=== PATIENT | female | born 1955 | race African-American/Black ===

== ENCOUNTER 2018-09-25 01:03 | Inpatient (IN) ==
[2018-09-25] MEDS ORDERED: FUROSEMIDE 40 MG/4 ML VIAL ONE (02:40)
[2018-09-25] MEDS ORDERED: FUROSEMIDE 40 MG/4 ML VIAL IV ONE ×4 (02:41→21:00)
[2018-09-25] MEDS ORDERED: ALBUTEROL/IPRATROPIUM 3 ML NEB RESP TX PRN (02:42)
[2018-09-25] MEDS: ALBUTEROL/IPRATROPIUM 3 ML NEB RESP TX SCH ×4 (03:48→19:53)
[2018-09-25] MEDS ORDERED: ONDANSETRON 4 MG/2 ML VIAL IV PRN (04:15)
[2018-09-25] MEDS ORDERED: DOCUSATE SODIUM 100 MG CAPSULE PO PRN (04:15)
[2018-09-25] MEDS ORDERED: ACETAMINOPHEN 325 MG TABLET PO PRN (04:15)
[2018-09-25] MEDS ORDERED: MAGNESIUM SULF RIDER 4 GM in PREMIX 1 EACH IV PRN (04:26)
[2018-09-25] MEDS ORDERED: MAGNESIUM SULF RIDER 2 GM in PREMIX 1 EACH IV PRN (04:26)
[2018-09-25] MEDS ORDERED: DEXTROSE 50% 25 GM/50 ML SYRINGE IV PRN ×2 (04:55→10:32)
[2018-09-25] MEDS ORDERED: GLUCAGON 1 MG VIAL IM PRN ×2 (04:55→10:32)
[2018-09-25] MEDS ORDERED: NITROGLYCERIN SL 0.4 MG TABLET SL PRN (04:58)
[2018-09-25] MEDS ORDERED: levETIRAcetam 500 MG TABLET PO ONE (05:00)
[2018-09-25 05:45] LABS: Basophils # 0.1 10*3/uL (0.0-0.2); Basophils % 0.4 % (0.0-0.8); Eosinophils # 0.1 10*3/uL (0.0-0.87); Eosinophils % 0.6 % (0.00-10.9); Hematocrit 37.2 VOL% (35.7-47.0); Hemoglobin 11.6 GM/DL (12.0-16.0); Immature Granulocytes % 0.5 %; Immature Granulocytes Absolute 0.06 #; Lymphocytes # 1.4 10*3/uL (1.4-4.0); Lymphocytes % 11.3 % (21.3-54.2); Mean Corpuscular HGB Conc 31.2 GM/DL (32-36); Mean Corpuscular Hemoglobin 29 PG (27-34); Mean Corpuscular Volume 91.4 FL (87-102); Mean Platelet Volume 11.6 FL (9.6-12.0); Monocytes # 0.5 10*3/uL (0.11-0.8); Monocytes % 4.3 % (1.7-12.7); Neutrophils # 10.2 10*3/uL (1.4-7.4); Neutrophils % 82.9 % (38.7-73.9); Platelet Count 277 T/CUMM (130-400); Red Blood Count 4.07 MC/CUMM (3.8-5.5); Red Cell Distribution Width 13.8 % (9.3-17.3); White Blood Count 12.3 T/CUMM (4-12)
[2018-09-25 05:48] LABS: PT Patient Result 10.7 SECS
[2018-09-25 05:49] LABS: Alanine Aminotransferase 22 U/L (13-56); Albumin 3.3 G/DL (3.4-5.0); Alkaline Phosphatase 109 U/L (45-117); Aspartate Amino Transferase 74 U/L (0-37); Bilirubin,Total < 0.39 MG/DL (0.2-1.0); Blood Urea Nitrogen 23 MG/DL (7-18); CKMB % 9.8 %; Calcium 8.8 MG/DL (8.5-10.1); Glucose 173 MG/DL (74-106); Potassium 3.6 MMOL/L (3.5-5.1); Sodium 136 MMOL/L (136-145)
[2018-09-25 05:56] LABS: Risk Ratio 3.9; Thyroid Stimulating Hormone 1.07 uIU/ml (0.358-3.74); VLDL CHOLESTEROL 19.4 MG/DL
[2018-09-25] MEDS: cefTRIAXone 1,000 MG in SYRINGE 1 EACH IV SCH (06:39)
[2018-09-25] MEDS: POTASSIUM CHLORIDE 20 MEQ TABLET PO PRN ×2 (07:42→09:49)
[2018-09-25] MEDS: FUROSEMIDE 40 MG/4 ML VIAL IV SCH ×2 (08:55→17:25)
[2018-09-25] MEDS: guaiFENesin/DM ER 600-30 MG TABLET PO SCH ×3 (08:59→21:00)
[2018-09-25] MEDS: INSULIN LISPRO 100 UNIT/ML SUBCUT SCH ×4 (08:59→21:39)
[2018-09-25] MEDS: ALBUTEROL 2.5 MG/3 ML NEB RESP TX PRN ×2 (09:45→12:41)
[2018-09-25] MEDS: AZITHROMYCIN INJ 500 MG in SODIUM CHLORIDE 0.9% 250 ML IV SCH (10:05)
[2018-09-25] MEDS: ENOXAPARIN 120 MG/0.8 ML SYRINGE SUBCUT SCH ×2 (10:54→23:45)
[2018-09-25] MEDS: ASPIRIN EC 81 MG TABLET PO SCH (10:54)
[2018-09-25] MEDS: METOPROLOL TARTRATE 25 MG TABLET PO SCH ×2 (10:54→21:00)
[2018-09-25] MEDS: methylPREDNISolone SOD SUC 40 MG/1 ML VIAL IV SCH ×2 (17:26→23:45)
[2018-09-25] MEDS: ROSUVASTATIN 20 MG TABLET PO SCH (21:00)
[2018-09-25] MEDS: MORPHINE 4 MG/1 ML VIAL IV PRN (22:08)
[2018-09-26] MEDS: ALBUTEROL/IPRATROPIUM 3 ML NEB RESP TX SCH ×4 (00:15→20:55)
[2018-09-26] MEDS: cefTRIAXone 1,000 MG in SYRINGE 1 EACH IV SCH (04:59)
[2018-09-26] MEDS: AZITHROMYCIN INJ 500 MG in SODIUM CHLORIDE 0.9% 250 ML IV SCH (04:59)
[2018-09-26 05:14] LABS: Basophils % 0.1 % (0.0-0.8); Hematocrit 36.7 VOL% (35.7-47.0); Hemoglobin 11.6 GM/DL (12.0-16.0); Immature Granulocytes % 0.5 %; Immature Granulocytes Absolute 0.09 #; Lymphocytes # 0.9 10*3/uL (1.4-4.0); Lymphocytes % 5.4 % (21.3-54.2); Mean Corpuscular HGB Conc 31.6 GM/DL (32-36); Mean Corpuscular Hemoglobin 28 PG (27-34); Mean Corpuscular Volume 89.7 FL (87-102); Mean Platelet Volume 12.2 FL (9.6-12.0); Monocytes # 0.3 10*3/uL (0.11-0.8); Monocytes % 1.6 % (1.7-12.7); Neutrophils # 15.4 10*3/uL (1.4-7.4); Neutrophils % 92.4 % (38.7-73.9); Platelet Count 264 T/CUMM (130-400); Red Blood Count 4.09 MC/CUMM (3.8-5.5); Red Cell Distribution Width 13.9 % (9.3-17.3); White Blood Count 16.6 T/CUMM (4-12)
[2018-09-26 05:39] LABS: Calcium 9.1 MG/DL (8.5-10.1); Osmolality,Calculated 287.7 MOS/KG (273-304); Potassium 4.3 MMOL/L (3.5-5.1)
[2018-09-26 07:39] LABS: Anisocytosis Slight; Band Neutrophils 8 % (0-10); Lymphocytes 6 % (20-55); Macrocytosis Slight; Platelet Estimate Normal; Segmented Neutrophils 86 % (50-85); Total Cells Counted 100
[2018-09-26] MEDS: ASPIRIN EC 81 MG TABLET PO SCH (08:36)
[2018-09-26] MEDS: methylPREDNISolone SOD SUC 40 MG/1 ML VIAL IV SCH ×3 (08:36→23:50)
[2018-09-26] MEDS: FUROSEMIDE 40 MG/4 ML VIAL IV SCH ×2 (08:36→15:26)
[2018-09-26] MEDS: guaiFENesin/DM ER 600-30 MG TABLET PO SCH ×2 (08:36→21:27)
[2018-09-26] MEDS: METOPROLOL TARTRATE 25 MG TABLET PO SCH (08:36)
[2018-09-26] MEDS: INSULIN LISPRO 100 UNIT/ML SUBCUT SCH ×4 (08:36→21:28)
[2018-09-26] MEDS: ALBUTEROL 2.5 MG/3 ML NEB RESP TX PRN (10:00)
[2018-09-26] MEDS: ENOXAPARIN 120 MG/0.8 ML SYRINGE SUBCUT SCH ×2 (11:30→23:50)
[2018-09-26 11:47] LABS: Apearance,Urine CLEAR (Clear); Bacteria,Urine Occasional /HPF (Few); Bilirubin,Urine Negative (Negative); Blood, Urine Moderate mg/dL (Negative); Glucose,Urine (UA) Negative (Negative); Hyaline Casts,Urine 3 /LPF (0-3); Ketones,Urine Negative (Negative); Mucus,Urine Occasional /LPF (Occasional); Nitrite,Urine Negative (Negative); Protein,Urine Negative; RBC,Urine 28 /HPF (0-4); Squamous Epithelial Cell,Urine Occasional /HPF (0-10); Urine Color Straw (Yellow); Urine Specific Gravity 1.008 (1.001-1.035); Urine Urobilinogen < 2.0 EU/DL (0.2-1.0); WBC,Urine 4 /HPF (0-6)
[2018-09-26] MEDS: GABAPENTIN 300 MG CAPSULE PO SCH ×2 (15:26→21:27)
[2018-09-26] MEDS: ROSUVASTATIN 20 MG TABLET PO SCH (21:26)
[2018-09-26] MEDS: METOPROLOL TARTRATE 50 MG TABLET PO SCH (21:27)
[2018-09-26] MEDS: INSULIN GLARGINE 100 UNIT/ML SUBCUT SCH (21:27)
[2018-09-27] MEDS: ALBUTEROL/IPRATROPIUM 3 ML NEB RESP TX SCH ×4 (00:28→19:40)
[2018-09-27] MEDS: MORPHINE 4 MG/1 ML VIAL IV PRN ×2 (00:58→22:50)
[2018-09-27 04:35] LABS: Basophils % 0.1 % (0.0-0.8); Hematocrit 32.8 VOL% (35.7-47.0); Hemoglobin 10.3 GM/DL (12.0-16.0); Immature Granulocytes % 0.7 %; Lymphocytes # 0.9 10*3/uL (1.4-4.0); Lymphocytes % 6.1 % (21.3-54.2); Mean Corpuscular HGB Conc 31.4 GM/DL (32-36); Mean Corpuscular Hemoglobin 28 PG (27-34); Mean Corpuscular Volume 89.9 FL (87-102); Mean Platelet Volume 11.9 FL (9.6-12.0); Monocytes # 0.3 10*3/uL (0.11-0.8); Monocytes % 1.8 % (1.7-12.7); Neutrophils # 13.7 10*3/uL (1.4-7.4); Neutrophils % 91.3 % (38.7-73.9); Platelet Count 250 T/CUMM (130-400); Red Blood Count 3.65 MC/CUMM (3.8-5.5)
[2018-09-27 04:59] LABS: Calcium 8.6 MG/DL (8.5-10.1); Osmolality,Calculated 287.8 MOS/KG (273-304); Potassium 4.3 MMOL/L (3.5-5.1)
[2018-09-27 05:03] LABS: Hypochromasia 1+; Lymphocytes 5 % (20-55); Platelet Estimate Adequate; Segmented Neutrophils 94 % (50-85); Total Cells Counted 100
[2018-09-27] MEDS: AZITHROMYCIN INJ 500 MG in SODIUM CHLORIDE 0.9% 250 ML IV SCH (05:24)
[2018-09-27] MEDS: cefTRIAXone 1,000 MG in SYRINGE 1 EACH IV SCH (05:24)
[2018-09-27] MEDS ORDERED: CLOPIDOGREL 300 MG TABLET PO ONE (09:50)
[2018-09-27] MEDS: FUROSEMIDE 40 MG/4 ML VIAL IV SCH ×2 (09:52→16:00)
[2018-09-27] MEDS: ASPIRIN EC 81 MG TABLET PO SCH (09:52)
[2018-09-27] MEDS: METOPROLOL TARTRATE 50 MG TABLET PO SCH ×2 (09:52→22:37)
[2018-09-27] MEDS: GABAPENTIN 300 MG CAPSULE PO SCH ×3 (09:52→22:36)
[2018-09-27] MEDS: guaiFENesin/DM ER 600-30 MG TABLET PO SCH ×2 (09:52→22:36)
[2018-09-27] MEDS: INSULIN LISPRO 100 UNIT/ML SUBCUT SCH ×4 (09:53→22:37)
[2018-09-27] MEDS: methylPREDNISolone SOD SUC 40 MG/1 ML VIAL IV SCH ×2 (09:53→15:59)
[2018-09-27] MEDS: AZITHROMYCIN 250 MG TABLET PO SCH (09:57)
[2018-09-27] MEDS: LISINOPRIL 2.5 MG TABLET PO SCH (10:25)
[2018-09-27] MEDS ORDERED: MAGNESIUM SULF RIDER 4 GM in PREMIX 1 EACH IV PRN (11:10)
[2018-09-27] MEDS ORDERED: MAGNESIUM SULF RIDER 2 GM in PREMIX 1 EACH IV PRN (11:10)
[2018-09-27] MEDS: glipiZIDE 5 MG TABLET PO SCH ×2 (11:25→22:37)
[2018-09-27] MEDS: ROSUVASTATIN 20 MG TABLET PO SCH (22:36)
[2018-09-27] MEDS: INSULIN GLARGINE 100 UNIT/ML SUBCUT SCH (22:38)
[2018-09-28] MEDS: methylPREDNISolone SOD SUC 40 MG/1 ML VIAL IV SCH ×3 (00:48→16:32)
[2018-09-28] MEDS: ALBUTEROL/IPRATROPIUM 3 ML NEB RESP TX SCH ×4 (01:35→19:40)
[2018-09-28] MEDS: MORPHINE 4 MG/1 ML VIAL IV PRN ×2 (04:43→22:30)
[2018-09-28] MEDS: cefTRIAXone 1,000 MG in SYRINGE 1 EACH IV SCH (04:45)
[2018-09-28 05:02] LABS: Basophils % 0.1 % (0.0-0.8); Hemoglobin 10.3 GM/DL (12.0-16.0); Immature Granulocytes % 0.7 %; Immature Granulocytes Absolute 0.08 #; Lymphocytes % 7.9 % (21.3-54.2); Mean Corpuscular HGB Conc 31.2 GM/DL (32-36); Mean Corpuscular Hemoglobin 28 PG (27-34); Mean Corpuscular Volume 90.4 FL (87-102); Mean Platelet Volume 11.6 FL (9.6-12.0); Monocytes # 0.5 10*3/uL (0.11-0.8); Monocytes % 4.3 % (1.7-12.7); Neutrophils # 10.6 10*3/uL (1.4-7.4); Platelet Count 270 T/CUMM (130-400); Red Blood Count 3.65 MC/CUMM (3.8-5.5); White Blood Count 12.2 T/CUMM (4-12)
[2018-09-28 05:30] LABS: Potassium 3.9 MMOL/L (3.5-5.1)
[2018-09-28 05:34] LABS: Troponin I 9.02 NG/ML (0.00-0.045)
[2018-09-28] MEDS: LISINOPRIL 2.5 MG TABLET PO SCH (09:07)
[2018-09-28] MEDS: guaiFENesin/DM ER 600-30 MG TABLET PO SCH ×2 (09:07→22:06)
[2018-09-28] MEDS: METOPROLOL TARTRATE 50 MG TABLET PO SCH ×2 (09:07→22:05)
[2018-09-28] MEDS: CLOPIDOGREL 75 MG TABLET PO SCH (09:08)
[2018-09-28] MEDS: INSULIN LISPRO 100 UNIT/ML SUBCUT SCH ×4 (09:08→22:33)
[2018-09-28] MEDS: glipiZIDE 5 MG TABLET PO SCH ×2 (09:08→22:05)
[2018-09-28] MEDS: GABAPENTIN 300 MG CAPSULE PO SCH ×3 (09:08→22:05)
[2018-09-28] MEDS: FUROSEMIDE 40 MG/4 ML VIAL IV SCH (09:08)
[2018-09-28] MEDS: AZITHROMYCIN 250 MG TABLET PO SCH (09:08)
[2018-09-28] MEDS: ASPIRIN EC 81 MG TABLET PO SCH (09:08)
[2018-09-28] MEDS: FUROSEMIDE 40 MG TABLET PO SCH (16:32)
[2018-09-28] MEDS: ROSUVASTATIN 20 MG TABLET PO SCH (22:05)
[2018-09-28] MEDS: INSULIN GLARGINE 100 UNIT/ML SUBCUT SCH (22:33)
[2018-09-29] MEDS: ALBUTEROL/IPRATROPIUM 3 ML NEB RESP TX SCH ×4 (00:30→20:50)
[2018-09-29] MEDS: methylPREDNISolone SOD SUC 40 MG/1 ML VIAL IV SCH ×3 (02:15→22:31)
[2018-09-29] MEDS: cefTRIAXone 1,000 MG in SYRINGE 1 EACH IV SCH (05:20)
[2018-09-29 05:39] LABS: Hematocrit 33.1 VOL% (35.7-47.0); Hemoglobin 10.5 GM/DL (12.0-16.0); Immature Granulocytes % 0.8 %; Immature Granulocytes Absolute 0.08 #; Lymphocytes # 0.9 10*3/uL (1.4-4.0); Mean Corpuscular HGB Conc 31.7 GM/DL (32-36); Mean Corpuscular Hemoglobin 29 PG (27-34); Mean Corpuscular Volume 90.4 FL (87-102); Mean Platelet Volume 11.7 FL (9.6-12.0); Monocytes # 0.4 10*3/uL (0.11-0.8); Monocytes % 4.5 % (1.7-12.7); Neutrophils # 8.4 10*3/uL (1.4-7.4); Neutrophils % 85.7 % (38.7-73.9); Platelet Count 275 T/CUMM (130-400); Red Blood Count 3.66 MC/CUMM (3.8-5.5); Red Cell Distribution Width 13.9 % (9.3-17.3); White Blood Count 9.8 T/CUMM (4-12)
[2018-09-29 05:57] LABS: Calcium 8.5 MG/DL (8.5-10.1); Osmolality,Calculated 290.8 MOS/KG (273-304); Potassium 3.8 MMOL/L (3.5-5.1)
[2018-09-29] MEDS: INSULIN LISPRO 100 UNIT/ML SUBCUT SCH ×4 (09:39→22:10)
[2018-09-29] MEDS: CLOPIDOGREL 75 MG TABLET PO SCH (09:40)
[2018-09-29] MEDS: METOPROLOL TARTRATE 50 MG TABLET PO SCH ×2 (09:40→22:10)
[2018-09-29] MEDS: FUROSEMIDE 40 MG TABLET PO SCH ×2 (09:40→16:44)
[2018-09-29] MEDS: LISINOPRIL 2.5 MG TABLET PO SCH (09:40)
[2018-09-29] MEDS: guaiFENesin/DM ER 600-30 MG TABLET PO SCH ×2 (09:40→22:10)
[2018-09-29] MEDS: glipiZIDE 5 MG TABLET PO SCH ×2 (09:40→22:31)
[2018-09-29] MEDS: GABAPENTIN 300 MG CAPSULE PO SCH ×3 (09:40→22:10)
[2018-09-29] MEDS: AZITHROMYCIN 250 MG TABLET PO SCH (09:41)
[2018-09-29] MEDS: ASPIRIN EC 81 MG TABLET PO SCH (09:41)
[2018-09-29] MEDS: POTASSIUM CHLORIDE 20 MEQ TABLET PO PRN (12:41)
[2018-09-29] MEDS: ROSUVASTATIN 20 MG TABLET PO SCH (22:10)
[2018-09-29] MEDS: INSULIN GLARGINE 100 UNIT/ML SUBCUT SCH (22:11)
[2018-09-30] MEDS: ALBUTEROL/IPRATROPIUM 3 ML NEB RESP TX SCH ×4 (00:53→20:09)
[2018-09-30] MEDS: MORPHINE 4 MG/1 ML VIAL IV PRN (01:02)
[2018-09-30] MEDS: cefTRIAXone 1,000 MG in SYRINGE 1 EACH IV SCH (04:30)
[2018-09-30 05:47] LABS: Calcium 8.6 MG/DL (8.5-10.1); Osmolality,Calculated 293.8 MOS/KG (273-304)
[2018-09-30 06:49] LABS: Hematocrit 33.5 VOL% (35.7-47.0); Hemoglobin 10.4 GM/DL (12.0-16.0); Immature Granulocytes % 0.4 %; Immature Granulocytes Absolute 0.04 #; Lymphocytes # 0.9 10*3/uL (1.4-4.0); Lymphocytes % 9.3 % (21.3-54.2); Mean Corpuscular Hemoglobin 28 PG (27-34); Mean Corpuscular Volume 90.1 FL (87-102); Mean Platelet Volume 11.7 FL (9.6-12.0); Monocytes # 0.5 10*3/uL (0.11-0.8); Monocytes % 4.7 % (1.7-12.7); Neutrophils # 8.7 10*3/uL (1.4-7.4); Neutrophils % 85.6 % (38.7-73.9); Platelet Count 284 T/CUMM (130-400); Red Blood Count 3.72 MC/CUMM (3.8-5.5); Red Cell Distribution Width 13.7 % (9.3-17.3); White Blood Count 10.2 T/CUMM (4-12)
[2018-09-30] MEDS: INSULIN LISPRO 100 UNIT/ML SUBCUT SCH ×4 (09:00→21:34)
[2018-09-30] MEDS: guaiFENesin/DM ER 600-30 MG TABLET PO SCH ×2 (09:02→21:34)
[2018-09-30] MEDS: GABAPENTIN 300 MG CAPSULE PO SCH ×3 (09:02→21:34)
[2018-09-30] MEDS: ASPIRIN EC 81 MG TABLET PO SCH (09:02)
[2018-09-30] MEDS: CLOPIDOGREL 75 MG TABLET PO SCH (09:02)
[2018-09-30] MEDS: LISINOPRIL 2.5 MG TABLET PO SCH (09:02)
[2018-09-30] MEDS: METOPROLOL TARTRATE 50 MG TABLET PO SCH ×2 (09:03→21:34)
[2018-09-30] MEDS: glipiZIDE 5 MG TABLET PO SCH ×2 (09:03→21:34)
[2018-09-30] MEDS: FUROSEMIDE 40 MG TABLET PO SCH ×2 (09:04→16:43)
[2018-09-30] MEDS: methylPREDNISolone SOD SUC 40 MG/1 ML VIAL IV SCH (09:08)
[2018-09-30] MEDS: ROSUVASTATIN 20 MG TABLET PO SCH (21:34)
[2018-09-30] MEDS: INSULIN GLARGINE 100 UNIT/ML SUBCUT SCH (21:35)
[2018-10-01] MEDS: MORPHINE 4 MG/1 ML VIAL IV PRN (00:03)
[2018-10-01] MEDS: ALBUTEROL/IPRATROPIUM 3 ML NEB RESP TX SCH ×2 (00:16→07:45)
[2018-10-01] MEDS: cefTRIAXone 1,000 MG in SYRINGE 1 EACH IV SCH (04:09)
[2018-10-01] MEDS: CLOPIDOGREL 75 MG TABLET PO SCH (08:31)
[2018-10-01] MEDS: ASPIRIN EC 81 MG TABLET PO SCH (08:31)
[2018-10-01] MEDS: INSULIN LISPRO 100 UNIT/ML SUBCUT SCH ×3 (08:31→16:40)
[2018-10-01] MEDS: guaiFENesin/DM ER 600-30 MG TABLET PO SCH (08:32)
[2018-10-01] MEDS: LISINOPRIL 2.5 MG TABLET PO SCH (08:32)
[2018-10-01] MEDS: glipiZIDE 5 MG TABLET PO SCH (08:32)
[2018-10-01] MEDS: GABAPENTIN 300 MG CAPSULE PO SCH ×2 (08:32→15:41)
[2018-10-01] MEDS: FUROSEMIDE 40 MG TABLET PO SCH ×2 (08:32→15:41)
[2018-10-01] MEDS: METOPROLOL TARTRATE 50 MG TABLET PO SCH (08:32)
[2018-10-01 16:34] VITALS: BP 131/85
== END 2018-10-01 17:20 | disposition home health service (06) | DRG 280 ==
LOC: N.TELEN 02:10 → SUATTDRO 02:10 → N.ICU 05:14 → N.TELEN 09-27 14:10
PROVIDERS: ADMIT Internal Medicine; ATTEND Internal Medicine Cardiovascular Disease

== ENCOUNTER 2018-11-16 09:28 | Inpatient (IN) ==
[~2018-11-16 09:28] MED LIST: DEXTROSE 50% 25 GM/50 ML SYRINGE IV PRN; DULAGLUTIDE SUBCUT SCH; GLUCAGON 1 MG VIAL IM PRN; NITROGLYCERIN SL 0.4 MG TABLET SL PRN
[2018-11-16 12:43] LABS: Basophils % 0.6 % (0.0-0.8); Eosinophils # 0.3 10*3/uL (0.0-0.87); Eosinophils % 4.5 % (0.00-10.9); Hematocrit 31.8 VOL% (35.7-47.0); Hemoglobin 9.4 GM/DL (12.0-16.0); Immature Granulocytes % 0.1 %; Immature Granulocytes Absolute 0.01 #; Lymphocytes # 1.5 10*3/uL (1.4-4.0); Lymphocytes % 21.1 % (21.3-54.2); Mean Corpuscular HGB Conc 29.6 GM/DL (32-36); Mean Corpuscular Hemoglobin 29 PG (27-34); Mean Corpuscular Volume 96.7 FL (87-102); Mean Platelet Volume 10.8 FL (9.6-12.0); Monocytes # 0.4 10*3/uL (0.11-0.8); Neutrophils # 4.7 10*3/uL (1.4-7.4); Neutrophils % 67.7 % (38.7-73.9); Platelet Count 229 T/CUMM (130-400); Red Blood Count 3.29 MC/CUMM (3.8-5.5); Red Cell Distribution Width 15.2 % (9.3-17.3)
[2018-11-16 13:07] LABS: Albumin 3.2 G/DL (3.4-5.0); Bilirubin,Total 1.1 MG/DL (0.2-1.0); Calcium 9.1 MG/DL (8.5-10.1); Osmolality,Calculated 286.1 MOS/KG (273-304); Potassium 3.9 MMOL/L (3.5-5.1); Total Protein 7.7 G/DL (6.4-8.3)
[2018-11-16] MEDS: levETIRAcetam 500 MG TABLET PO SCH ×3 (13:59→21:05)
[2018-11-16] MEDS: POTASSIUM CHLORIDE 20 MEQ TABLET PO SCH ×2 (13:59→14:37)
[2018-11-16] MEDS: METOPROLOL TARTRATE 50 MG TABLET PO SCH ×3 (13:59→21:06)
[2018-11-16] MEDS: MAGNESIUM OXIDE 400 MG TABLET PO SCH ×3 (14:00→21:06)
[2018-11-16] MEDS: GABAPENTIN 300 MG CAPSULE PO SCH ×4 (14:00→21:06)
[2018-11-16] MEDS: SODIUM CHLORIDE 0.9% 1,000 ML IV SCH ×2 (14:01→14:02)
[2018-11-16] MEDS: ATORVASTATIN 40 MG TABLET PO SCH ×2 (14:02→21:06)
[2018-11-16] MEDS: PANTOPRAZOLE 40 MG TABLET PO SCH ×2 (14:02→14:38)
[2018-11-16] MEDS: FUROSEMIDE 80 MG TABLET PO SCH ×3 (14:02→16:01)
[2018-11-16] MEDS: CHLORHEXIDINE 0.12% ORAL RINSE 60 ML BOTTLE SWISH/SPIT SCH ×3 (14:02→23:10)
[2018-11-16] MEDS: CHLORHEXIDINE 4% SOLN 118 ML BOTTLE TOP SCH ×4 (14:36→23:10)
[2018-11-16] MEDS ORDERED: NITROPRUSSIDE 50 MG/2 ML VIAL ONE (22:42)
[2018-11-16] MEDS ORDERED: PHENYLEPHRINE DRIP 40 MG/250 ML PREMIX IV ONE (22:42)
[2018-11-16] MEDS ORDERED: POTASSIUM CHLORIDE RIDER 100 ML IV ONE (22:43)
[2018-11-16] MEDS ORDERED: CALCIUM CHLORIDE 1,000 MG/10 ML SYRINGE IV ONE (22:43)
[2018-11-17] MEDS: CHLORHEXIDINE 4% SOLN 118 ML BOTTLE TOP SCH ×3 (05:00→10:55)
[2018-11-17] MEDS ORDERED: VANCOMYCIN 1,000 MG VIAL ONE (05:01)
[2018-11-17] MEDS ORDERED: PAPAVERINE 60 MG/2 ML VIAL ONE (05:01)
[2018-11-17] MEDS ORDERED: PHENYLEPHRINE DRIP 20 MG/250 ML PREMIX IV ONE (05:53)
[2018-11-17] MEDS ORDERED: HEPARIN/NACL 0.9% 2 UNITS/ML 500 ML IV ONE (05:53)
[2018-11-17] MEDS ORDERED: AMINOCAPROIC ACID 5,000 MG/20 ML VIAL ONE (05:54)
[2018-11-17] MEDS ORDERED: MIDAZOLAM 10 MG/2 ML VIAL ONE (05:54)
[2018-11-17] MEDS ORDERED: NITROGLYCERIN DRIP 50 MG/250 ML BOTTLE IV ONE (05:54)
[2018-11-17] MEDS ORDERED: SUFentanil 250 MCG/5 ML AMP ONE (05:54)
[2018-11-17] MEDS ORDERED: VECURONIUM 10 MG VIAL IV ONE (05:54)
[2018-11-17] MEDS ORDERED: CEFUROXIME INJ 1,500 MG in SYRINGE 1 EACH IV ONE (06:00)
[2018-11-17] MEDS ORDERED: CLINDAMYCIN 600 MG/4 ML VIAL ONE (08:00)
[2018-11-17 08:07] LABS: Hemoglobin Heart Surgery 9.2 G/DL (12.0-16.0); PH Patient Temp Venous 7.363; PO2 Patient Temp Venous 41.8 MM HG; Potassium Heart/CVR 3.5 MMOL/L (3.5-5.1); VBG Base Excess 3.9 MEQ/L (0-4); VBG Oxygen Saturation 66.1 %; VBG PH 7.363; VBG PO2 41.8 MMHG (17-40)
[2018-11-17 08:21] LABS: Apearance,Urine CLEAR (Clear); Bilirubin,Urine Negative (Negative); Blood, Urine Negative (Negative); Glucose,Urine (UA) Negative (Negative); Ketones,Urine Negative (Negative); Mucus,Urine Occasional /LPF (Occasional); Nitrite,Urine Negative (Negative); Protein,Urine Negative; Squamous Epithelial Cell,Urine Occasional /HPF (0-10); Urine Color Yellow (Yellow); Urine Specific Gravity 1.012 (1.001-1.035); Urine Urobilinogen < 2.0 EU/DL (0.2-1.0); WBC,Urine 2 /HPF (0-6)
[2018-11-17 09:38] LABS: Hematocrit Heart Surgery 24.6 PERCENT (37-47); Hemoglobin Heart Surgery 7.9 G/DL (12.0-16.0); PCO2 Patient Temp Venous 33.9 MM HG; PH Patient Temp Venous 7.487; Potassium Heart/CVR 4.1 MMOL/L (3.5-5.1); VBG Base Excess 2.5 MEQ/L (0-4); VBG HCO3 26.5 MEQ/L (24-28); VBG Oxygen Saturation 83.9 %; VBG PCO2 39.2 MMHG (41-51); VBG PH 7.442
[2018-11-17 10:09] LABS: PCO2 Patient Temp Venous 30.5 MM HG; PH Patient Temp Venous 7.547; PO2 Patient Temp Venous 39.9 MM HG; Potassium Heart/CVR 3.9 MMOL/L (3.5-5.1); VBG Base Excess 3.3 MEQ/L (0-4); VBG HCO3 26.3 MEQ/L (24-28); VBG Oxygen Saturation 82.3 %; VBG PCO2 33.3 MMHG (41-51); VBG PH 7.516; VBG PO2 45.9 MMHG (17-40)
[2018-11-17] MEDS ORDERED: SODIUM BICARBONATE 50 MEQ/50 ML SYRINGE IV ONE ×2 (10:31→11:15)
[2018-11-17] MEDS ORDERED: EPINEPHrine 1 MG/10 ML SYRINGE ONE (10:32)
[2018-11-17] MEDS ORDERED: LIDOCAINE 100 MG/5 ML SYRINGE ONE (10:32)
[2018-11-17] MEDS ORDERED: ALBUMIN 5% 12.5 GM/250 ML VIAL IV ONE (10:32)
[2018-11-17] MEDS ORDERED: ATROPINE 1 MG/10 ML SYRINGE ONE (10:32)
[2018-11-17] MEDS ORDERED: DOBUTamine 0 MG/0 ML PREMIX IV ONE (10:38)
[2018-11-17] MEDS: FUROSEMIDE 80 MG TABLET PO SCH (10:53)
[2018-11-17] MEDS: levETIRAcetam 500 MG TABLET PO SCH (10:54)
[2018-11-17] MEDS: POTASSIUM CHLORIDE 20 MEQ TABLET PO SCH (10:54)
[2018-11-17] MEDS: METOPROLOL TARTRATE 50 MG TABLET PO SCH (10:54)
[2018-11-17] MEDS: SODIUM CHLORIDE 0.9% 1,000 ML IV SCH (10:54)
[2018-11-17] MEDS: MAGNESIUM OXIDE 400 MG TABLET PO SCH (10:54)
[2018-11-17] MEDS: GABAPENTIN 300 MG CAPSULE PO SCH (10:54)
[2018-11-17] MEDS: CHLORHEXIDINE 0.12% ORAL RINSE 60 ML BOTTLE SWISH/SPIT SCH ×2 (10:55→21:38)
[2018-11-17] MEDS: PANTOPRAZOLE 40 MG TABLET PO SCH (10:55)
[2018-11-17 11:02] LABS: ABG Base Excess 1.8 MMOL/L (-2.5-2.5); ABG HCO3 25.2 MMOL/L (20-26); ABG PCO2 34.3 MM HG (35-48); ABG PH 7.484 (7.35-7.45); ABG PO2 316.7 MM HG (80-95); ABG TCO2 26.3 MMOL/L (23-27); Glucose Heart Surgery 183 MG/DL (74-106); Hemoglobin Heart Surgery 8.5 G/DL (12.0-16.0); PCO2 Patient Temp Arterial 34.3 MMHG; PH Patient Temp Arterial 7.484; PO2 Patient Temp Arterial 316.7 MM HG; Patient Temperature 37 CELCIUS; Potassium Heart/CVR 3.8 MMOL/L (3.5-5.1); Sodium Heart/CVR 137 MMOL/L (135-145)
[2018-11-17] MEDS ORDERED: MANNITOL 100 GM/500 ML BAG IV ONE (11:14)
[2018-11-17] MEDS ORDERED: DEXTROSE 5% KCL 20 MEQ 20 MEQ/1,000 ML BAG IV ONE (11:14)
[2018-11-17] MEDS ORDERED: HEPARIN 10,000 UNIT/10 ML VIAL ONE (11:15)
[2018-11-17] MEDS ORDERED: methylPREDNISolone SOD SUC 1,000 MG/8 ML VIAL ONE (11:15)
[2018-11-17] MEDS ORDERED: FUROSEMIDE 20 MG/2 ML VIAL ONE (11:15)
[2018-11-17] MEDS ORDERED: ALBUMIN 25% 25 GM/100 ML VIAL IV ONE (11:15)
[2018-11-17] MEDS ORDERED: PROTAMINE SULFATE 250 MG/25 ML VIAL IV ONE (11:15)
[2018-11-17] MEDS ORDERED: MAGNESIUM SULFATE 10 GM/20 ML VIAL IV ONE (11:15)
[2018-11-17] MEDS ORDERED: PROTAMINE SULFATE 50 MG/5 ML VIAL IV ONE ×3 (11:16→12:51)
[2018-11-17] MEDS ORDERED: DOBUTamine 500 MG/250 ML PREMIX IV ONE (11:26)
[2018-11-17] MEDS: DOBUTamine 500 MG/250 ML PREMIX IV SCH (11:48)
[2018-11-17] MEDS ORDERED: CALCIUM CHLORIDE 1,000 MG/10 ML VIAL IV ONE (12:07)
[2018-11-17] MEDS ORDERED: SODIUM CHLORIDE 0.9% 50 ML IV ONE (12:08)
[2018-11-17] MEDS ORDERED: LACTATED RINGERS 1,000 ML IV ONE (12:08)
[2018-11-17] MEDS ORDERED: ETOMIDATE 40 MG/20 ML VIAL IV ONE (12:08)
[2018-11-17] MEDS ORDERED: SODIUM CHLORIDE 0.9% 250 ML IV ONE (12:08)
[2018-11-17] MEDS ORDERED: SEVOFLURANE 1 UNIT/15 MINUTE INH ONE (12:08)
[2018-11-17] MEDS ORDERED: MINERAL OIL/PETROLATUM OPH OINT 3.5 GM TUBE ONE (12:08)
[2018-11-17] MEDS ORDERED: SODIUM CHLORIDE 0.9% 2,000 ML IV ONE (12:08)
[2018-11-17] MEDS ORDERED: MIDAZOLAM 10 MG/2 ML VIAL IV PRN (12:22)
[2018-11-17] MEDS ORDERED: MAGNESIUM SULF RIDER 4 GM in PREMIX 1 EACH IV PRN (12:22)
[2018-11-17] MEDS ORDERED: INSULIN REGULAR 100 UNIT/ML IV ONE (12:22)
[2018-11-17] MEDS ORDERED: MORPHINE 10 MG/1 ML VIAL IV PRN (12:22)
[2018-11-17] MEDS ORDERED: CALCIUM CHLORIDE 1,000 MG/10 ML SYRINGE IV PRN (12:22)
[2018-11-17] MEDS ORDERED: NITROPRUSSIDE 100 MG in DEXTROSE 5% 250 ML IV PRN (12:22)
[2018-11-17] MEDS ORDERED: SODIUM CHLORIDE 0.45% 1,000 ML IV SCH ×2 (12:22)
[2018-11-17] MEDS ORDERED: ONDANSETRON 4 MG/2 ML VIAL IV PRN (12:22)
[2018-11-17] MEDS ORDERED: INSULIN REGULAR 100 UNIT/ML IV PRN (12:22)
[2018-11-17] MEDS ORDERED: LACTATED RINGERS 250 ML IV PRN (12:22)
[2018-11-17] MEDS ORDERED: ACETAMINOPHEN 650 MG SUPP RECTAL PRN (12:22)
[2018-11-17] MEDS ORDERED: PHENYLEPHRINE DRIP 40 MG/250 ML PREMIX IV PRN (12:22)
[2018-11-17] MEDS ORDERED: MAGNESIUM SULF RIDER 2 GM in PREMIX 1 EACH IV PRN (12:22)
[2018-11-17] MEDS ORDERED: ALBUMIN 5% 12.5 GM in PREMIX 1 EACH IV PRN (12:22)
[2018-11-17] MEDS ORDERED: DEXTROSE 50% 25 GM/50 ML SYRINGE IV PRN ×2 (12:22)
[2018-11-17] MEDS ORDERED: MIDAZOLAM 2 MG/2 ML VIAL IV PRN (12:22)
[2018-11-17] MEDS ORDERED: VECURONIUM 10 MG VIAL IV PRN ×2 (12:22)
[2018-11-17 12:29] LABS: Basophils % 0.3 % (0.0-0.8); Eosinophils # 0.2 10*3/uL (0.0-0.87); Eosinophils % 1.3 % (0.00-10.9); Hematocrit 25.3 VOL% (35.7-47.0); Immature Granulocytes % 0.9 %; Immature Granulocytes Absolute 0.11 #; Lymphocytes # 1.3 10*3/uL (1.4-4.0); Lymphocytes % 9.9 % (21.3-54.2); Mean Corpuscular HGB Conc 31.6 GM/DL (32-36); Mean Corpuscular Hemoglobin 30 PG (27-34); Mean Corpuscular Volume 94.4 FL (87-102); Mean Platelet Volume 10.5 FL (9.6-12.0); Monocytes # 0.6 10*3/uL (0.11-0.8); Monocytes % 4.4 % (1.7-12.7); Neutrophils # 10.5 10*3/uL (1.4-7.4); Neutrophils % 83.2 % (38.7-73.9); Platelet Count 186 T/CUMM (130-400); Red Blood Count 2.68 MC/CUMM (3.8-5.5); Red Cell Distribution Width 15.1 % (9.3-17.3); White Blood Count 12.6 T/CUMM (4-12)
[2018-11-17 12:32] LABS: ABG Base Excess 1.2 MMOL/L (-2.5-2.5); ABG HCO3 25.5 MMOL/L (20-26); ABG Oxygen Saturation 94.5 % (95-100); ABG PCO2 39.3 MM HG (35-48); ABG PH 7.422 (7.35-7.45); ABG PO2 71.3 MM HG (80-95); ABG TCO2 23.8 MMOL/L (23-27); Glucose Heart Surgery 165 MG/DL (74-106); Hematocrit Heart Surgery 25.8 PERCENT (37-47); Hemoglobin Heart Surgery 8.3 G/DL (12.0-16.0); Potassium Heart/CVR 3.5 MMOL/L (3.5-5.1)
[2018-11-17] MEDS: POTASSIUM CHLORIDE RIDER 20 MEQ in PREMIX 1 EACH IV PRN ×5 (12:34→21:33)
[2018-11-17 12:35] LABS: INR 1.2; Partial Thromboplastin Time 26.5 SECS (0-40)
[2018-11-17 12:45] LABS: Albumin 2.7 G/DL (3.4-5.0); Bilirubin,Total 1.2 MG/DL (0.2-1.0); Calcium 9.3 MG/DL (8.5-10.1); Potassium 3.6 MMOL/L (3.5-5.1); Total Protein 5.4 G/DL (6.4-8.3)
[2018-11-17] MEDS ORDERED: FUROSEMIDE 40 MG/4 ML VIAL ONE (12:48)
[2018-11-17] MEDS ORDERED: FUROSEMIDE 40 MG/4 ML VIAL IV ONE (12:51)
[2018-11-17 12:59] LABS: Troponin I 3.22 NG/ML (0.00-0.045)
[2018-11-17] MEDS: POTASSIUM CHLORIDE RIDER 10 MEQ in PREMIX 1 EACH IV PRN ×2 (13:05→15:21)
[2018-11-17] MEDS: INSULIN REGULAR DRIP 100 ML IV SCH (13:12)
[2018-11-17 14:05] LABS: ABG Base Excess 1.4 MMOL/L (-2.5-2.5); ABG HCO3 25.7 MMOL/L (20-26); ABG PCO2 41.3 MM HG (35-48); ABG TCO2 23.8 MMOL/L (23-27); Glucose Heart Surgery 137 MG/DL (74-106); Hematocrit Heart Surgery 31.2 PERCENT (37-47); Hemoglobin Heart Surgery 10.1 G/DL (12.0-16.0); Potassium Heart/CVR 3.7 MMOL/L (3.5-5.1)
[2018-11-17 14:19] LABS: Hemoglobin 9.1 GM/DL (12.0-16.0)
[2018-11-17 16:03] LABS: ABG Base Excess 2.3 MMOL/L (-2.5-2.5); ABG HCO3 26.5 MMOL/L (20-26); ABG Oxygen Saturation 93.6 % (95-100); ABG PCO2 39.6 MM HG (35-48); ABG PH 7.443 (7.35-7.45); ABG PO2 72.1 MM HG (80-95); ABG TCO2 27.7 MMOL/L (23-27); Glucose Heart Surgery 123 MG/DL (74-106); Hemoglobin Heart Surgery 10.9 G/DL (12.0-16.0); Potassium Heart/CVR 4.2 MMOL/L (3.5-5.1)
[2018-11-17] MEDS ORDERED: SODIUM CHLORIDE 0.9% 1,000 ML IV ONE (18:03)
[2018-11-17 18:10] LABS: ABG Base Excess 1.6 MMOL/L (-2.5-2.5); ABG HCO3 25.7 MMOL/L (20-26); ABG PCO2 40.5 MM HG (35-48); ABG PH 7.418 (7.35-7.45); ABG PO2 70.1 MM HG (80-95); ABG TCO2 23.5 MMOL/L (23-27); Glucose Heart Surgery 134 MG/DL (74-106); Hematocrit Heart Surgery 33.8 PERCENT (37-47); Potassium Heart/CVR 4.1 MMOL/L (3.5-5.1)
[2018-11-17] MEDS: MORPHINE 4 MG/1 ML VIAL IV PRN ×2 (20:00→22:28)
[2018-11-17 20:47] LABS: ABG Base Excess 1.6 MMOL/L (-2.5-2.5); ABG HCO3 25.8 MMOL/L (20-26); ABG Oxygen Saturation 95.7 % (95-100); ABG PCO2 40.8 MM HG (35-48); ABG PH 7.416 (7.35-7.45); ABG PO2 77.4 MM HG (80-95); ABG TCO2 23.9 MMOL/L (23-27); Glucose Heart Surgery 148 MG/DL (74-106); Hematocrit Heart Surgery 31.1 PERCENT (37-47); Hemoglobin Heart Surgery 10.1 G/DL (12.0-16.0); Potassium Heart/CVR 4.3 MMOL/L (3.5-5.1)
[2018-11-17 21:23] LABS: CKMB % 4.3 %
[2018-11-17 21:25] LABS: Troponin I 3.4 NG/ML (0.00-0.045)
[2018-11-17 23:57] LABS: ABG Base Excess 1.9 MMOL/L (-2.5-2.5); ABG HCO3 26.1 MMOL/L (20-26); ABG Oxygen Saturation 98.1 % (95-100); ABG PCO2 41.7 MM HG (35-48); ABG PH 7.414 (7.35-7.45); ABG PO2 99.9 MM HG (80-95); ABG TCO2 24.2 MMOL/L (23-27); Glucose Heart Surgery 133 MG/DL (74-106); Potassium Heart/CVR 4.2 MMOL/L (3.5-5.1)
[2018-11-18 00:34] LABS: ABG Base Excess 2.6 MMOL/L (-2.5-2.5); ABG HCO3 26.7 MMOL/L (20-26); ABG Oxygen Saturation 96.8 % (95-100); ABG PCO2 40.8 MM HG (35-48); ABG PO2 84.1 MM HG (80-95); ABG TCO2 24.6 MMOL/L (23-27); Glucose Heart Surgery 130 MG/DL (74-106); Hematocrit Heart Surgery 30.9 PERCENT (37-47); Potassium Heart/CVR 4.2 MMOL/L (3.5-5.1)
[2018-11-18] MEDS: MORPHINE 4 MG/1 ML VIAL IV PRN ×2 (01:38→09:28)
[2018-11-18 04:06] LABS: ABG Base Excess 3.5 MMOL/L (-2.5-2.5); ABG HCO3 27.9 MMOL/L (20-26); ABG Oxygen Saturation 95.3 % (95-100); ABG PCO2 41.8 MM HG (35-48); ABG PH 7.443 (7.35-7.45); ABG PO2 82.5 MM HG (80-95); ABG TCO2 29.2 MMOL/L (23-27); Glucose Heart Surgery 104 MG/DL (74-106); Hemoglobin Heart Surgery 10.3 G/DL (12.0-16.0)
[2018-11-18 04:13] LABS: Basophils % 0.2 % (0.0-0.8); Hematocrit 30.2 VOL% (35.7-47.0); Hemoglobin 9.5 GM/DL (12.0-16.0); Immature Granulocytes % 0.5 %; Immature Granulocytes Absolute 0.05 #; Lymphocytes # 0.8 10*3/uL (1.4-4.0); Lymphocytes % 7.1 % (21.3-54.2); Mean Corpuscular HGB Conc 31.5 GM/DL (32-36); Mean Corpuscular Hemoglobin 30 PG (27-34); Mean Corpuscular Volume 94.1 FL (87-102); Mean Platelet Volume 10.8 FL (9.6-12.0); Monocytes # 0.5 10*3/uL (0.11-0.8); Monocytes % 4.9 % (1.7-12.7); Neutrophils # 9.6 10*3/uL (1.4-7.4); Neutrophils % 87.3 % (38.7-73.9); Platelet Count 164 T/CUMM (130-400); Red Blood Count 3.21 MC/CUMM (3.8-5.5); Red Cell Distribution Width 15.1 % (9.3-17.3)
[2018-11-18 04:27] LABS: CKMB % 4.3 %
[2018-11-18 04:31] LABS: Troponin I 3.09 NG/ML (0.00-0.045)
[2018-11-18 04:44] LABS: Albumin 3.1 G/DL (3.4-5.0); Bilirubin,Direct 0.22 MG/DL (0.0-0.20); Bilirubin,Total 0.7 MG/DL (0.2-1.0); Calcium 9.1 MG/DL (8.5-10.1); Osmolality,Calculated 287.8 MOS/KG (273-304); Potassium 4.1 MMOL/L (3.5-5.1); Total Protein 6.1 G/DL (6.4-8.3)
[2018-11-18] MEDS: POTASSIUM CHLORIDE RIDER 20 MEQ in PREMIX 1 EACH IV PRN (05:01)
[2018-11-18] MEDS ORDERED: DEXTROSE 50% 25 GM/50 ML SYRINGE IV PRN (06:12)
[2018-11-18] MEDS ORDERED: GLUCAGON 1 MG VIAL IM PRN (06:12)
[2018-11-18] MEDS: INSULIN REGULAR 100 UNIT/ML SUBCUT SCH ×5 (06:47→21:03)
[2018-11-18 06:52] LABS: ABG Base Excess 2.9 MMOL/L (-2.5-2.5); ABG HCO3 27.7 MMOL/L (20-26); ABG Oxygen Saturation 93.2 % (95-100); ABG PCO2 43.4 MM HG (35-48); ABG PH 7.423 (7.35-7.45); ABG PO2 72.1 MM HG (80-95); Glucose Heart Surgery 117 MG/DL (74-106); Hemoglobin Heart Surgery 10.2 G/DL (12.0-16.0); Potassium Heart/CVR 4.4 MMOL/L (3.5-5.1)
[2018-11-18] MEDS: DOBUTamine 500 MG/250 ML PREMIX IV SCH ×2 (08:21→11:14)
[2018-11-18] MEDS: GABAPENTIN 300 MG CAPSULE PO SCH ×3 (09:33→21:03)
[2018-11-18] MEDS: METOPROLOL TARTRATE 50 MG TABLET PO SCH ×2 (09:33→21:03)
[2018-11-18] MEDS: MAGNESIUM OXIDE 400 MG TABLET PO SCH ×2 (09:33→21:03)
[2018-11-18] MEDS: PANTOPRAZOLE 40 MG TABLET PO SCH (09:33)
[2018-11-18] MEDS: FUROSEMIDE 40 MG/4 ML VIAL IV SCH ×2 (09:36→15:30)
[2018-11-18] MEDS: CHLORHEXIDINE 0.12% ORAL RINSE 60 ML BOTTLE SWISH/SPIT SCH ×2 (09:50→21:03)
[2018-11-18] MEDS: INSULIN REGULAR DRIP 100 ML IV SCH (11:24)
[2018-11-18] MEDS: SODIUM CHLORIDE 0.45% 1,000 ML IV SCH (11:26)
[2018-11-18 13:48] LABS: CKMB % 1.7 %
[2018-11-18 13:49] LABS: Troponin I 2.52 NG/ML (0.00-0.045)
[2018-11-18 15:41] LABS: ABG Base Excess 1.9 MMOL/L (-2.5-2.5); ABG HCO3 26.1 MMOL/L (20-26); ABG Oxygen Saturation 96.7 % (95-100); ABG PCO2 38.1 MM HG (35-48); ABG PH 7.441 (7.35-7.45); ABG PO2 82.4 MM HG (80-95); ABG TCO2 23.6 MMOL/L (23-27); Glucose Heart Surgery 192 MG/DL (74-106); Hematocrit Heart Surgery 30.9 PERCENT (37-47)
[2018-11-18] MEDS ORDERED: KETOROLAC 30 MG/1 ML VIAL IV ONE (16:08)
[2018-11-18] MEDS ORDERED: HALOPERIDOL 5 MG/ML AMP IV ONE (16:09)
[2018-11-18] MEDS ORDERED: HALOPERIDOL 5 MG/ML AMP IV PRN (18:27)
[2018-11-18] MEDS ORDERED: traMADol 50 MG TABLET PO PRN (18:28)
[2018-11-19] MEDS: SODIUM CHLORIDE 0.45% 1,000 ML IV SCH (01:11)
[2018-11-19] MEDS: INSULIN REGULAR 100 UNIT/ML SUBCUT SCH ×5 (01:31→20:58)
[2018-11-19 03:55] LABS: Basophils % 0.1 % (0.0-0.8); Hematocrit 29.2 VOL% (35.7-47.0); Hemoglobin 8.9 GM/DL (12.0-16.0); Immature Granulocytes % 0.6 %; Immature Granulocytes Absolute 0.08 #; Lymphocytes # 1.1 10*3/uL (1.4-4.0); Mean Corpuscular HGB Conc 30.5 GM/DL (32-36); Mean Corpuscular Hemoglobin 30 PG (27-34); Mean Platelet Volume 11.4 FL (9.6-12.0); Monocytes # 1.1 10*3/uL (0.11-0.8); Neutrophils % 83.3 % (38.7-73.9); Platelet Count 162 T/CUMM (130-400); Red Blood Count 3.01 MC/CUMM (3.8-5.5); Red Cell Distribution Width 15.3 % (9.3-17.3); White Blood Count 13.2 T/CUMM (4-12)
[2018-11-19 04:13] LABS: Albumin 2.9 G/DL (3.4-5.0); Bilirubin,Direct 0.16 MG/DL (0.0-0.20); Bilirubin,Total 0.4 MG/DL (0.2-1.0); Calcium 8.3 MG/DL (8.5-10.1); Total Protein 6.4 G/DL (6.4-8.3)
[2018-11-19] MEDS: FUROSEMIDE 40 MG/4 ML VIAL IV SCH (08:26)
[2018-11-19] MEDS: METOPROLOL TARTRATE 50 MG TABLET PO SCH ×2 (08:28→20:43)
[2018-11-19] MEDS: PANTOPRAZOLE 40 MG TABLET PO SCH ×2 (08:28→10:39)
[2018-11-19] MEDS: CHLORHEXIDINE 0.12% ORAL RINSE 60 ML BOTTLE SWISH/SPIT SCH ×3 (08:28→22:36)
[2018-11-19] MEDS: MAGNESIUM OXIDE 400 MG TABLET PO SCH (08:28)
[2018-11-19] MEDS: GABAPENTIN 300 MG CAPSULE PO SCH ×3 (08:28→20:43)
[2018-11-19] MEDS ORDERED: ONDANSETRON 4 MG/2 ML VIAL IV PRN (09:47)
[2018-11-19] MEDS ORDERED: ACETAMINOPHEN 325 MG TABLET PO PRN (09:47)
[2018-11-19] MEDS ORDERED: DEXTROSE 50% 25 GM/50 ML VIAL IV PRN (09:47)
[2018-11-19] MEDS ORDERED: ZALEPLON 5 MG CAPSULE PO PRN (09:47)
[2018-11-19] MEDS ORDERED: DEXTROSE 50% 25 GM/50 ML SYRINGE IV PRN (09:47)
[2018-11-19] MEDS ORDERED: ALUMINUM/MAGNES/SIMETH MAX STR 30 ML UDCUP PO PRN (09:47)
[2018-11-19] MEDS ORDERED: MAGNESIUM SULF RIDER 2 GM in PREMIX 1 EACH IV PRN (09:47)
[2018-11-19] MEDS ORDERED: MAGNESIUM HYDROXIDE SUSP 30 ML UDCUP PO PRN (09:47)
[2018-11-19] MEDS ORDERED: MAGNESIUM SULF RIDER 4 GM in PREMIX 1 EACH IV PRN (09:47)
[2018-11-19] MEDS ORDERED: GLUCAGON 1 MG VIAL IM PRN ×2 (09:47)
[2018-11-19] MEDS ORDERED: SODIUM CHLOR 0.45% KCL 20 MEQ 20 MEQ/1,000 ML BAG IV SCH (09:47)
[2018-11-19] MEDS: DOCUSATE SODIUM 100 MG CAPSULE PO SCH (10:37)
[2018-11-19] MEDS: FERROUS SULFATE 325 MG TABLET PO SCH (10:37)
[2018-11-19] MEDS: ASPIRIN EC 325 MG TABLET PO SCH (10:37)
[2018-11-19] MEDS: diphenhydrAMINE CAP 25 MG CAPSULE PO PRN ×2 (11:59→20:42)
[2018-11-19] MEDS: levETIRAcetam 500 MG TABLET PO SCH (20:43)
[2018-11-20 05:02] LABS: Basophils % 0.1 % (0.0-0.8); Eosinophils # 0.1 10*3/uL (0.0-0.87); Eosinophils % 0.9 % (0.00-10.9); Hematocrit 29.7 VOL% (35.7-47.0); Immature Granulocytes % 0.7 %; Immature Granulocytes Absolute 0.08 #; Lymphocytes # 1.8 10*3/uL (1.4-4.0); Mean Corpuscular HGB Conc 30.3 GM/DL (32-36); Mean Corpuscular Hemoglobin 29 PG (27-34); Mean Corpuscular Volume 96.7 FL (87-102); Mean Platelet Volume 11.8 FL (9.6-12.0); Monocytes % 8.1 % (1.7-12.7); Neutrophils % 75.2 % (38.7-73.9); Platelet Count 167 T/CUMM (130-400); Red Blood Count 3.07 MC/CUMM (3.8-5.5); Red Cell Distribution Width 15.3 % (9.3-17.3)
[2018-11-20 05:28] LABS: Alanine Aminotransferase 11 U/L (13-56); Alkaline Phosphatase 71 U/L (45-117); Aspartate Amino Transferase 22 U/L (0-37); Bilirubin,Indirect 0.8 MG/DL (0.0-1.0); Blood Urea Nitrogen 29 MG/DL (7-18); Calcium 8.8 MG/DL (8.5-10.1); Glucose 149 MG/DL (74-106); Osmolality,Calculated 291.1 MOS/KG (273-304); Potassium 3.9 MMOL/L (3.5-5.1); Sodium 142 MMOL/L (136-145); Total Protein 6.5 G/DL (6.4-8.3)
[2018-11-20] MEDS ORDERED: FUROSEMIDE 40 MG/4 ML VIAL IV ONE (06:00)
[2018-11-20] MEDS: POTASSIUM CHLORIDE 20 MEQ TABLET PO PRN ×2 (06:43→08:31)
[2018-11-20] MEDS: INSULIN REGULAR 100 UNIT/ML SUBCUT SCH ×3 (08:05→16:34)
[2018-11-20] MEDS: levETIRAcetam 500 MG TABLET PO SCH (08:31)
[2018-11-20] MEDS: ASPIRIN EC 325 MG TABLET PO SCH (08:31)
[2018-11-20] MEDS: PANTOPRAZOLE 40 MG TABLET PO SCH (08:31)
[2018-11-20] MEDS: METOPROLOL TARTRATE 50 MG TABLET PO SCH (08:31)
[2018-11-20] MEDS: FERROUS SULFATE 325 MG TABLET PO SCH (08:31)
[2018-11-20] MEDS: diphenhydrAMINE CAP 25 MG CAPSULE PO PRN (08:32)
[2018-11-20] MEDS: DOCUSATE SODIUM 100 MG CAPSULE PO SCH (08:32)
[2018-11-20] MEDS: GABAPENTIN 300 MG CAPSULE PO SCH ×2 (08:32→15:40)
[2018-11-20] MEDS: CHLORHEXIDINE 0.12% ORAL RINSE 60 ML BOTTLE SWISH/SPIT SCH (10:07)
[2018-11-20] MEDS: ZINC OXIDE PASTE 113 GM TUBE TOP SCH (13:17)
[2018-11-21] MEDS: GABAPENTIN 300 MG CAPSULE PO SCH ×4 (00:11→23:44)
[2018-11-21] MEDS: ZINC OXIDE PASTE 113 GM TUBE TOP SCH ×3 (00:11→23:45)
[2018-11-21] MEDS: METOPROLOL TARTRATE 50 MG TABLET PO SCH ×3 (00:11→23:43)
[2018-11-21] MEDS: levETIRAcetam 500 MG TABLET PO SCH ×3 (00:11→23:43)
[2018-11-21] MEDS: CHLORHEXIDINE 0.12% ORAL RINSE 60 ML BOTTLE SWISH/SPIT SCH ×3 (00:17→23:44)
[2018-11-21] MEDS: INSULIN REGULAR 100 UNIT/ML SUBCUT SCH ×5 (00:44→23:44)
[2018-11-21 05:02] LABS: Basophils % 0.1 % (0.0-0.8); Eosinophils # 0.5 10*3/uL (0.0-0.87); Eosinophils % 4.2 % (0.00-10.9); Hematocrit 28.6 VOL% (35.7-47.0); Hemoglobin 8.8 GM/DL (12.0-16.0); Immature Granulocytes % 0.4 %; Immature Granulocytes Absolute 0.05 #; Lymphocytes # 1.8 10*3/uL (1.4-4.0); Mean Corpuscular HGB Conc 30.8 GM/DL (32-36); Mean Corpuscular Hemoglobin 30 PG (27-34); Mean Corpuscular Volume 96.9 FL (87-102); Mean Platelet Volume 11.4 FL (9.6-12.0); Monocytes # 0.9 10*3/uL (0.11-0.8); Monocytes % 8.1 % (1.7-12.7); Neutrophils # 8.4 10*3/uL (1.4-7.4); Neutrophils % 72.2 % (38.7-73.9); Platelet Count 175 T/CUMM (130-400); Red Blood Count 2.95 MC/CUMM (3.8-5.5); Red Cell Distribution Width 14.7 % (9.3-17.3); White Blood Count 11.6 T/CUMM (4-12)
[2018-11-21 05:39] LABS: Alanine Aminotransferase 11 U/L (13-56); Albumin 2.6 G/DL (3.4-5.0); Alkaline Phosphatase 70 U/L (45-117); Aspartate Amino Transferase 14 U/L (0-37); Blood Urea Nitrogen 28 MG/DL (7-18); Calcium 8.4 MG/DL (8.5-10.1); Glucose 101 MG/DL (74-106); Osmolality,Calculated 288.1 MOS/KG (273-304); Sodium 142 MMOL/L (136-145); Total Protein 6.2 G/DL (6.4-8.3)
[2018-11-21 05:40] LABS: Troponin I 0.615 NG/ML (0.00-0.045)
[2018-11-21] MEDS: POTASSIUM CHLORIDE 20 MEQ TABLET PO PRN (08:53)
[2018-11-21] MEDS: ASPIRIN EC 325 MG TABLET PO SCH (08:53)
[2018-11-21] MEDS: PANTOPRAZOLE 40 MG TABLET PO SCH (08:53)
[2018-11-21] MEDS: FERROUS SULFATE 325 MG TABLET PO SCH (08:54)
[2018-11-21] MEDS: DOCUSATE SODIUM 100 MG CAPSULE PO SCH (08:54)
[2018-11-21] MEDS: FUROSEMIDE 40 MG/4 ML VIAL IV SCH (08:58)
[2018-11-22] MEDS: INSULIN REGULAR 100 UNIT/ML SUBCUT SCH ×4 (07:44→21:17)
[2018-11-22] MEDS: PANTOPRAZOLE 40 MG TABLET PO SCH (09:30)
[2018-11-22] MEDS: levETIRAcetam 500 MG TABLET PO SCH ×2 (09:30→21:18)
[2018-11-22] MEDS: ASPIRIN EC 325 MG TABLET PO SCH (09:30)
[2018-11-22] MEDS: FERROUS SULFATE 325 MG TABLET PO SCH (09:30)
[2018-11-22] MEDS: METOPROLOL TARTRATE 50 MG TABLET PO SCH ×2 (09:30→21:18)
[2018-11-22] MEDS: GABAPENTIN 300 MG CAPSULE PO SCH ×3 (09:30→21:18)
[2018-11-22] MEDS: ZINC OXIDE PASTE 113 GM TUBE TOP SCH ×2 (09:31→21:28)
[2018-11-22] MEDS: DOCUSATE SODIUM 100 MG CAPSULE PO SCH (09:31)
[2018-11-22] MEDS: CHLORHEXIDINE 0.12% ORAL RINSE 60 ML BOTTLE SWISH/SPIT SCH ×2 (09:31→21:28)
[2018-11-22] MEDS: FUROSEMIDE 40 MG/4 ML VIAL IV SCH (09:31)
[2018-11-23 05:33] LABS: Basophils % 0.2 % (0.0-0.8); Eosinophils # 0.7 10*3/uL (0.0-0.87); Eosinophils % 6.8 % (0.00-10.9); Hematocrit 26.6 VOL% (35.7-47.0); Hemoglobin 8.1 GM/DL (12.0-16.0); Immature Granulocytes % 0.6 %; Immature Granulocytes Absolute 0.06 #; Lymphocytes # 1.5 10*3/uL (1.4-4.0); Lymphocytes % 13.5 % (21.3-54.2); Mean Corpuscular HGB Conc 30.5 GM/DL (32-36); Mean Corpuscular Hemoglobin 30 PG (27-34); Mean Corpuscular Volume 97.1 FL (87-102); Mean Platelet Volume 11.8 FL (9.6-12.0); Monocytes % 8.8 % (1.7-12.7); Neutrophils # 7.6 10*3/uL (1.4-7.4); Neutrophils % 70.1 % (38.7-73.9); Platelet Count 189 T/CUMM (130-400); Red Blood Count 2.74 MC/CUMM (3.8-5.5); Red Cell Distribution Width 14.6 % (9.3-17.3); White Blood Count 10.9 T/CUMM (4-12)
[2018-11-23 05:48] LABS: Alanine Aminotransferase 13 U/L (13-56); Albumin 2.5 G/DL (3.4-5.0); Alkaline Phosphatase 70 U/L (45-117); Aspartate Amino Transferase 11 U/L (0-37); Bilirubin,Indirect 0.6 MG/DL (0.0-1.0); Blood Urea Nitrogen 23 MG/DL (7-18); Calcium 8.5 MG/DL (8.5-10.1); Glucose 96 MG/DL (74-106); Osmolality,Calculated 286.1 MOS/KG (273-304); Potassium 3.5 MMOL/L (3.5-5.1); Sodium 142 MMOL/L (136-145); Total Protein 6.3 G/DL (6.4-8.3); Troponin I 0.205 NG/ML (0.00-0.045)
[2018-11-23] MEDS: INSULIN REGULAR 100 UNIT/ML SUBCUT SCH (08:15)
[2018-11-23 08:37] VITALS: BP 131/66
[2018-11-23] MEDS: FUROSEMIDE 40 MG/4 ML VIAL IV SCH (08:46)
[2018-11-23] MEDS: FERROUS SULFATE 325 MG TABLET PO SCH (08:47)
[2018-11-23] MEDS: GABAPENTIN 300 MG CAPSULE PO SCH (08:47)
[2018-11-23] MEDS: ZINC OXIDE PASTE 113 GM TUBE TOP SCH (08:47)
[2018-11-23] MEDS: levETIRAcetam 500 MG TABLET PO SCH (08:47)
[2018-11-23] MEDS: CHLORHEXIDINE 0.12% ORAL RINSE 60 ML BOTTLE SWISH/SPIT SCH (08:47)
[2018-11-23] MEDS: PANTOPRAZOLE 40 MG TABLET PO SCH (08:47)
[2018-11-23] MEDS: ASPIRIN EC 325 MG TABLET PO SCH (08:47)
[2018-11-23] MEDS: METOPROLOL TARTRATE 50 MG TABLET PO SCH (08:47)
[2018-11-23] MEDS: DOCUSATE SODIUM 100 MG CAPSULE PO SCH (08:47)
== END 2018-11-23 11:55 | disposition home health service (06) | DRG 235 ==
LOC: N.TELES 11:53 → N.CVR 11-17 10:37 → N.ICU 11-18 14:40 → N.TELES 11-19 09:33

== ENCOUNTER 2019-07-19 23:58 | Inpatient (IN) ==
[2019-07-20] MEDS ORDERED: ASPIRIN 325 MG TABLET PO STA (00:24)
[2019-07-20] MEDS ORDERED: ONDANSETRON 4 MG/2 ML VIAL IV STA (00:24)
[2019-07-20] MEDS ORDERED: NITROGLYCERIN 2% OINT 1 INCH/GM PACK TOP STA (00:24)
[2019-07-20 00:42] LABS: Basophils # 0.1 10*3/uL (0.0-0.2); Basophils % 0.5 % (0.0-0.8); Eosinophils # 0.1 10*3/uL (0.0-0.87); Eosinophils % 0.6 % (0.00-10.9); Hematocrit 29.5 VOL% (35.7-47.0); Immature Granulocytes % 0.5 %; Immature Granulocytes Absolute 0.05 #; Lymphocytes # 1.8 10*3/uL (1.4-4.0); Lymphocytes % 16.3 % (21.3-54.2); Mean Corpuscular HGB Conc 30.5 GM/DL (32-36); Mean Corpuscular Volume 83.6 FL (87-102); Mean Platelet Volume 11.5 FL (9.6-12.0); Monocytes % 8.5 % (1.7-12.7); NRBC # 0.02 10*3/uL; Neutrophils % 73.6 % (38.7-73.9); Platelet Count 225 T/CUMM (130-400); Red Blood Count 3.53 MC/CUMM (3.8-5.5); Red Cell Distribution Width 19.9 % (9.3-17.3); White Blood Count 11.1 T/CUMM (4-12)
[2019-07-20 00:47] LABS: INR 1.3; PT Patient Result 13.7 SECS (9.6-12.2)
[2019-07-20 00:52] LABS: Albumin 3.1 G/DL (3.4-5.0); Calcium 8.6 MG/DL (8.5-10.1); Osmolality,Calculated 287.3 MOS/KG (273-304); Total Protein 7.2 G/DL (6.4-8.3)
[2019-07-20] MEDS ORDERED: ONDANSETRON 4 MG/2 ML VIAL IV PRN (03:32)
[2019-07-20] MEDS ORDERED: MORPHINE 4 MG/1 ML VIAL IV PRN (03:32)
[2019-07-20] MEDS ORDERED: DEXTROSE 50% 25 GM/50 ML VIAL IV PRN (03:32)
[2019-07-20] MEDS ORDERED: MAGNESIUM SULF RIDER 4 GM in PREMIX 1 EACH IV PRN (03:32)
[2019-07-20] MEDS ORDERED: GLUCAGON 1 MG VIAL IM PRN (03:32)
[2019-07-20] MEDS ORDERED: MAGNESIUM SULF RIDER 2 GM in PREMIX 1 EACH IV PRN (03:32)
[2019-07-20] MEDS ORDERED: POTASSIUM CHLORIDE 20 MEQ TABLET PO PRN (03:32)
[2019-07-20] MEDS: SODIUM CHLORIDE 0.9% 1,000 ML IV SCH (03:49)
[2019-07-20] MEDS ORDERED: NITROGLYCERIN SL 0.4 MG TABLET SL PRN (04:49)
[2019-07-20] MEDS ORDERED: ENOXAPARIN 150 MG/ML SYRINGE SUBCUT SCH (05:00)
[2019-07-20 05:43] LABS: Basophils # 0.1 10*3/uL (0.0-0.2); Basophils % 0.5 % (0.0-0.8); Eosinophils # 0.2 10*3/uL (0.0-0.87); Eosinophils % 2.1 % (0.00-10.9); Hematocrit 30.7 VOL% (35.7-47.0); Hemoglobin 9.1 GM/DL (12.0-16.0); Immature Granulocytes % 0.4 %; Immature Granulocytes Absolute 0.05 #; Lymphocytes # 2.2 10*3/uL (1.4-4.0); Lymphocytes % 18.8 % (21.3-54.2); Mean Corpuscular HGB Conc 29.6 GM/DL (32-36); Mean Corpuscular Volume 84.6 FL (87-102); Mean Platelet Volume 11.2 FL (9.6-12.0); Monocytes % 9.5 % (1.7-12.7); NRBC # 0.02 10*3/uL; Neutrophils % 68.7 % (38.7-73.9); Platelet Count 242 T/CUMM (130-400); Red Blood Count 3.63 MC/CUMM (3.8-5.5); Red Cell Distribution Width 19.8 % (9.3-17.3); White Blood Count 11.6 T/CUMM (4-12)
[2019-07-20 06:01] LABS: CKMB % 2.9 %
[2019-07-20 06:05] LABS: Troponin I 33.3 NG/ML (0.00-0.045)
[2019-07-20 06:08] LABS: Albumin 3.2 G/DL (3.4-5.0); Bilirubin,Total 1.5 MG/DL (0.2-1.0); Calcium 9.1 MG/DL (8.5-10.1); Osmolality,Calculated 288.3 MOS/KG (273-304); Risk Ratio 2.45; Thyroid Stimulating Hormone 1.53 uIU/ml (0.358-3.74); Total Protein 7.6 G/DL (6.4-8.3); VLDL CHOLESTEROL 14.8 MG/DL
[2019-07-20] MEDS: INSULIN REGULAR 100 UNIT/ML SUBCUT SCH ×3 (06:46→17:57)
[2019-07-20] MEDS ORDERED: glipiZIDE 5 MG TABLET PO SCH (07:30)
[2019-07-20] MEDS: METOPROLOL TARTRATE 50 MG TABLET PO SCH ×2 (08:26→22:00)
[2019-07-20] MEDS: PANTOPRAZOLE 40 MG TABLET PO SCH (08:26)
[2019-07-20] MEDS: POTASSIUM CHLORIDE 20 MEQ TABLET PO SCH (08:27)
[2019-07-20] MEDS: levETIRAcetam 500 MG TABLET PO SCH ×2 (08:27→22:01)
[2019-07-20] MEDS: ASPIRIN EC 81 MG TABLET PO SCH (08:27)
[2019-07-20] MEDS: GABAPENTIN 100 MG CAPSULE PO SCH ×2 (08:39→22:00)
[2019-07-20] MEDS ORDERED: GABAPENTIN 300 MG CAPSULE PO SCH (09:00)
[2019-07-20] MEDS ORDERED: MAGNESIUM OXIDE 400 MG TABLET PO SCH (09:00)
[2019-07-20 09:42] LABS: % Iron Saturation 5.4 % (18-50); Ferritin 37.7 ng/ml (8-252)
[2019-07-20 10:31] LABS: Hepatitis B Core IgM Quant < 0.05 Index; Hepatitis B Surface Ag Quant 0.26 Index; Hepatitis B Surface Ag Result Negative (Negative); Hepatitis C Virus Ab Quant 0.27 Index; Hepatitis C Virus Ab Result Negative (Negative); Prolactin 23.1 NG/ML
[2019-07-20 11:25] LABS: Amorphous Crystals,Urine Few /HPF (Few); Apearance,Urine CLOUDY (Clear); Bacteria,Urine Moderate /HPF (Few); Bilirubin,Urine Negative (Negative); Blood, Urine Large mg/dL (Negative); Glucose,Urine (UA) Negative (Negative); Hyaline Casts,Urine 44 /LPF (0-3); Ketones,Urine Negative (Negative); Mucus,Urine Occasional /LPF (Occasional); Nitrite,Urine Negative (Negative); Protein,Urine 30 MG/DL; Squamous Epithelial Cell,Urine Occasional /HPF (0-10); Urine Color Yellow (Yellow); Urine Specific Gravity 1.014 (1.001-1.035); Urine Urobilinogen < 2.0 EU/DL (0.2-1.0)
[2019-07-20] MEDS ORDERED: BISACODYL 5 MG TABLET PO SCH (14:00)
[2019-07-20] MEDS ORDERED: POLYETHYLENE GLYCOL 3350/ELECTROLYTES 4,000 ML BOTTLE NG ONE (18:00)
[2019-07-20] MEDS: ENOXAPARIN 100 MG/ML SYRINGE SUBCUT SCH (18:02)
[2019-07-20] MEDS ORDERED: MAGNESIUM CITRATE 300 ML BOTTLE NG ONE (21:00)
[2019-07-20] MEDS: FERROUS SULFATE 325 MG TABLET PO SCH (22:00)
[2019-07-20] MEDS: FUROSEMIDE INJ 200 MG in SODIUM CHLORIDE 0.9% 80 ML IV SCH (22:01)
[2019-07-21] MEDS: SODIUM CHLORIDE 0.9% 1,000 ML IV SCH ×2 (00:34→15:49)
[2019-07-21] MEDS: INSULIN REGULAR 100 UNIT/ML SUBCUT SCH ×4 (00:34→19:26)
[2019-07-21 05:32] LABS: Basophils % 0.4 % (0.0-0.8); Eosinophils # 0.1 10*3/uL (0.0-0.87); Eosinophils % 0.4 % (0.00-10.9); Hematocrit 32.5 VOL% (35.7-47.0); Hemoglobin 9.7 GM/DL (12.0-16.0); Immature Granulocytes % 0.5 %; Immature Granulocytes Absolute 0.06 #; Lymphocytes # 1.7 10*3/uL (1.4-4.0); Lymphocytes % 15.3 % (21.3-54.2); Mean Corpuscular HGB Conc 29.8 GM/DL (32-36); Mean Platelet Volume 12.2 FL (9.6-12.0); Monocytes % 9.3 % (1.7-12.7); Neutrophils % 74.1 % (38.7-73.9); Platelet Count 266 T/CUMM (130-400); Red Blood Count 3.87 MC/CUMM (3.8-5.5); Red Cell Distribution Width 20.2 % (9.3-17.3); White Blood Count 11.1 T/CUMM (4-12)
[2019-07-21 05:57] LABS: Albumin 3.3 G/DL (3.4-5.0); Bilirubin,Direct 0.98 MG/DL (0.0-0.20); Bilirubin,Indirect 1.3 MG/DL (0.0-1.0); Bilirubin,Total 2.3 MG/DL (0.2-1.0); Total Protein 7.9 G/DL (6.4-8.3)
[2019-07-21] MEDS: METOPROLOL TARTRATE 50 MG TABLET PO SCH ×2 (08:34→21:59)
[2019-07-21] MEDS: PANTOPRAZOLE 40 MG TABLET PO SCH (08:34)
[2019-07-21] MEDS: FERROUS SULFATE 325 MG TABLET PO SCH ×2 (08:34→21:59)
[2019-07-21] MEDS: GABAPENTIN 100 MG CAPSULE PO SCH ×2 (08:34→21:59)
[2019-07-21] MEDS: POTASSIUM CHLORIDE 20 MEQ TABLET PO SCH (08:35)
[2019-07-21] MEDS: levETIRAcetam 500 MG TABLET PO SCH ×2 (08:36→21:59)
[2019-07-21] MEDS: ASPIRIN EC 81 MG TABLET PO SCH (08:36)
[2019-07-21] MEDS: CLOPIDOGREL 75 MG TABLET PO SCH (09:21)
[2019-07-21 10:31] LABS: Calcium 8.8 MG/DL (8.5-10.1); Osmolality,Calculated 286.8 MOS/KG (273-304)
[2019-07-21] MEDS: ACETAMINOPHEN 325 MG TABLET PO PRN (13:31)
[2019-07-21] MEDS: cefTRIAXone 1,000 MG in SYRINGE 1 EACH IV SCH (13:32)
[2019-07-21] MEDS: ENOXAPARIN 100 MG/ML SYRINGE SUBCUT SCH (17:07)
[2019-07-21] MEDS: FUROSEMIDE INJ 200 MG in SODIUM CHLORIDE 0.9% 80 ML IV SCH (18:38)
[2019-07-21] MEDS: CITRIC ACID/SODIUM CITRATE 30 ML UDCUP PO SCH (22:00)
[2019-07-21] MEDS: ATORVASTATIN 40 MG TABLET PO SCH (22:00)
[2019-07-22] MEDS: INSULIN REGULAR 100 UNIT/ML SUBCUT SCH ×5 (01:29→23:48)
[2019-07-22 06:09] LABS: Basophils # 0.1 10*3/uL (0.0-0.2); Basophils % 0.7 % (0.0-0.8); Eosinophils # 0.3 10*3/uL (0.0-0.87); Eosinophils % 2.2 % (0.00-10.9); Hemoglobin 9.1 GM/DL (12.0-16.0); Immature Granulocytes % 0.6 %; Immature Granulocytes Absolute 0.07 #; Lymphocytes # 1.7 10*3/uL (1.4-4.0); Lymphocytes % 14.7 % (21.3-54.2); Mean Corpuscular HGB Conc 30.3 GM/DL (32-36); Mean Platelet Volume 11.3 FL (9.6-12.0); Monocytes % 10.5 % (1.7-12.7); NRBC # 0.11 10*3/uL; Neutrophils % 71.3 % (38.7-73.9); Platelet Count 260 T/CUMM (130-400); Red Blood Count 3.57 MC/CUMM (3.8-5.5); Red Cell Distribution Width 20.1 % (9.3-17.3); White Blood Count 11.3 T/CUMM (4-12)
[2019-07-22 06:44] LABS: Calcium 8.6 MG/DL (8.5-10.1); Osmolality,Calculated 294.5 MOS/KG (273-304)
[2019-07-22 06:53] LABS: Bilirubin,Direct 0.66 MG/DL (0.0-0.20); Bilirubin,Indirect 1.4 MG/DL (0.0-1.0); Bilirubin,Total 2.1 MG/DL (0.2-1.0); Total Protein 7.1 G/DL (6.4-8.3)
[2019-07-22] MEDS: levETIRAcetam 500 MG TABLET PO SCH ×2 (10:04→21:31)
[2019-07-22] MEDS: CLOPIDOGREL 75 MG TABLET PO SCH (10:04)
[2019-07-22] MEDS: METOPROLOL TARTRATE 50 MG TABLET PO SCH ×2 (10:04→21:30)
[2019-07-22] MEDS: GABAPENTIN 100 MG CAPSULE PO SCH ×2 (10:05→21:31)
[2019-07-22] MEDS: PANTOPRAZOLE 40 MG TABLET PO SCH (10:05)
[2019-07-22] MEDS: POTASSIUM CHLORIDE 20 MEQ TABLET PO SCH (10:05)
[2019-07-22] MEDS: FERROUS SULFATE 325 MG TABLET PO SCH ×2 (10:06→21:30)
[2019-07-22] MEDS: ASPIRIN EC 81 MG TABLET PO SCH (10:06)
[2019-07-22] MEDS: CITRIC ACID/SODIUM CITRATE 30 ML UDCUP PO SCH ×2 (10:11→21:31)
[2019-07-22] MEDS: FUROSEMIDE INJ 200 MG in SODIUM CHLORIDE 0.9% 80 ML IV SCH (15:21)
[2019-07-22] MEDS: cefTRIAXone 1,000 MG in SYRINGE 1 EACH IV SCH (15:23)
[2019-07-22] MEDS: ENOXAPARIN 100 MG/ML SYRINGE SUBCUT SCH (15:24)
[2019-07-22] MEDS: ACETAMINOPHEN 325 MG TABLET PO PRN (16:11)
[2019-07-22] MEDS: ATORVASTATIN 40 MG TABLET PO SCH (21:31)
[2019-07-23] MEDS: ACETAMINOPHEN 325 MG TABLET PO PRN ×3 (00:17→21:36)
[2019-07-23 05:22] LABS: Albumin 2.9 G/DL (3.4-5.0); Bilirubin,Direct 0.44 MG/DL (0.0-0.20); Bilirubin,Indirect 1.4 MG/DL (0.0-1.0); Bilirubin,Total 1.8 MG/DL (0.2-1.0); Total Protein 7.2 G/DL (6.4-8.3)
[2019-07-23 05:52] LABS: Calcium 8.7 MG/DL (8.5-10.1); Osmolality,Calculated 300.3 MOS/KG (273-304)
[2019-07-23] MEDS: INSULIN REGULAR 100 UNIT/ML SUBCUT SCH ×3 (06:22→18:50)
[2019-07-23] MEDS: PANTOPRAZOLE 40 MG TABLET PO SCH (09:04)
[2019-07-23] MEDS: GABAPENTIN 100 MG CAPSULE PO SCH ×2 (09:04→20:50)
[2019-07-23] MEDS: METOPROLOL TARTRATE 50 MG TABLET PO SCH ×2 (09:04→20:51)
[2019-07-23] MEDS: levETIRAcetam 500 MG TABLET PO SCH ×2 (09:04→20:51)
[2019-07-23] MEDS: FERROUS SULFATE 325 MG TABLET PO SCH ×2 (09:04→20:51)
[2019-07-23] MEDS: ASPIRIN EC 81 MG TABLET PO SCH (09:04)
[2019-07-23] MEDS: POTASSIUM CHLORIDE 20 MEQ TABLET PO SCH (09:04)
[2019-07-23] MEDS: CLOPIDOGREL 75 MG TABLET PO SCH (09:05)
[2019-07-23] MEDS: FUROSEMIDE INJ 200 MG in SODIUM CHLORIDE 0.9% 80 ML IV SCH (10:55)
[2019-07-23] MEDS: CITRIC ACID/SODIUM CITRATE 30 ML UDCUP PO SCH ×2 (10:56→20:52)
[2019-07-23] MEDS: cefTRIAXone 1,000 MG in SYRINGE 1 EACH IV SCH (13:39)
[2019-07-23] MEDS: ENOXAPARIN 100 MG/ML SYRINGE SUBCUT SCH (15:51)
[2019-07-23] MEDS: ATORVASTATIN 40 MG TABLET PO SCH (20:50)
[2019-07-24] MEDS: INSULIN REGULAR 100 UNIT/ML SUBCUT SCH ×4 (00:20→18:18)
[2019-07-24] MEDS: ACETAMINOPHEN 325 MG TABLET PO PRN ×3 (02:41→22:00)
[2019-07-24 04:53] LABS: Basophils # 0.1 10*3/uL (0.0-0.2); Basophils % 0.9 % (0.0-0.8); Eosinophils # 0.5 10*3/uL (0.0-0.87); Eosinophils % 5.2 % (0.00-10.9); Hematocrit 28.9 VOL% (35.7-47.0); Hemoglobin 8.9 GM/DL (12.0-16.0); Immature Granulocytes % 0.6 %; Immature Granulocytes Absolute 0.06 #; Lymphocytes # 1.6 10*3/uL (1.4-4.0); Lymphocytes % 15.8 % (21.3-54.2); Mean Corpuscular HGB Conc 30.8 GM/DL (32-36); Mean Corpuscular Volume 83.5 FL (87-102); Mean Platelet Volume 11.8 FL (9.6-12.0); NRBC # 0.08 10*3/uL; Neutrophils % 65.5 % (38.7-73.9); Platelet Count 248 T/CUMM (130-400); Red Blood Count 3.46 MC/CUMM (3.8-5.5); Red Cell Distribution Width 20.5 % (9.3-17.3); White Blood Count 10.3 T/CUMM (4-12)
[2019-07-24 05:12] LABS: Calcium 8.7 MG/DL (8.5-10.1)
[2019-07-24 06:10] LABS: Albumin 2.9 G/DL (3.4-5.0); Bilirubin,Direct 0.36 MG/DL (0.0-0.20); Bilirubin,Indirect 0.4 MG/DL (0.0-1.0); Bilirubin,Total 0.8 MG/DL (0.2-1.0); Total Protein 7.1 G/DL (6.4-8.3)
[2019-07-24] MEDS: FUROSEMIDE INJ 200 MG in SODIUM CHLORIDE 0.9% 80 ML IV SCH (06:25)
[2019-07-24] MEDS: METOPROLOL TARTRATE 50 MG TABLET PO SCH ×2 (09:03→21:59)
[2019-07-24] MEDS: GABAPENTIN 100 MG CAPSULE PO SCH (09:03)
[2019-07-24] MEDS: CITRIC ACID/SODIUM CITRATE 30 ML UDCUP PO SCH ×2 (09:03→21:58)
[2019-07-24] MEDS: PANTOPRAZOLE 40 MG TABLET PO SCH (09:03)
[2019-07-24] MEDS: FERROUS SULFATE 325 MG TABLET PO SCH ×2 (09:04→21:59)
[2019-07-24] MEDS: levETIRAcetam 500 MG TABLET PO SCH ×2 (09:04→21:59)
[2019-07-24] MEDS: POTASSIUM CHLORIDE 20 MEQ TABLET PO SCH (09:04)
[2019-07-24] MEDS: ASPIRIN EC 81 MG TABLET PO SCH (09:04)
[2019-07-24] MEDS: CLOPIDOGREL 75 MG TABLET PO SCH (09:05)
[2019-07-24] MEDS: POLYETHYLENE GLYCOL POWDER 17 GM PACK PO SCH (12:48)
[2019-07-24] MEDS: ENOXAPARIN 30 MG/0.3 ML SYRINGE SUBCUT SCH (16:41)
[2019-07-24] MEDS: cefTRIAXone 1,000 MG in SYRINGE 1 EACH IV SCH (16:42)
[2019-07-24] MEDS: ATORVASTATIN 40 MG TABLET PO SCH (21:59)
[2019-07-24] MEDS: GABAPENTIN 300 MG CAPSULE PO SCH (21:59)
[2019-07-25] MEDS: INSULIN REGULAR 100 UNIT/ML SUBCUT SCH ×4 (00:52→17:20)
[2019-07-25] MEDS: FUROSEMIDE INJ 200 MG in SODIUM CHLORIDE 0.9% 80 ML IV SCH ×2 (06:46→21:19)
[2019-07-25] MEDS: PANTOPRAZOLE 40 MG TABLET PO SCH (09:07)
[2019-07-25] MEDS: CITRIC ACID/SODIUM CITRATE 30 ML UDCUP PO SCH ×2 (09:07→21:37)
[2019-07-25] MEDS: CLOPIDOGREL 75 MG TABLET PO SCH (09:07)
[2019-07-25] MEDS: METOPROLOL TARTRATE 50 MG TABLET PO SCH ×2 (09:07→21:37)
[2019-07-25] MEDS: POLYETHYLENE GLYCOL POWDER 17 GM PACK PO SCH (09:07)
[2019-07-25] MEDS: GABAPENTIN 300 MG CAPSULE PO SCH ×2 (09:09→21:38)
[2019-07-25] MEDS: ASPIRIN EC 81 MG TABLET PO SCH (09:09)
[2019-07-25] MEDS: POTASSIUM CHLORIDE 20 MEQ TABLET PO SCH (09:10)
[2019-07-25] MEDS: FERROUS SULFATE 325 MG TABLET PO SCH ×2 (09:10→21:37)
[2019-07-25] MEDS: levETIRAcetam 500 MG TABLET PO SCH ×2 (09:10→21:38)
[2019-07-25] MEDS: cefTRIAXone 1,000 MG in SYRINGE 1 EACH IV SCH (14:58)
[2019-07-25] MEDS: ENOXAPARIN 30 MG/0.3 ML SYRINGE SUBCUT SCH (14:59)
[2019-07-25] MEDS: DOBUTamine 500 MG/250 ML PREMIX IV SCH ×2 (15:04→20:19)
[2019-07-25] MEDS ORDERED: TUBERCULIN SKIN TEST 0.1 ML SYRINGE INTRADERM ONE (15:46)
[2019-07-25] MEDS: ATORVASTATIN 40 MG TABLET PO SCH (21:38)
[2019-07-26] MEDS: INSULIN REGULAR 100 UNIT/ML SUBCUT SCH ×4 (00:38→17:03)
[2019-07-26] MEDS: FUROSEMIDE INJ 200 MG in SODIUM CHLORIDE 0.9% 80 ML IV SCH ×2 (00:53→19:36)
[2019-07-26] MEDS: DOBUTamine 500 MG/250 ML PREMIX IV SCH ×3 (03:02→21:21)
[2019-07-26 06:03] LABS: Basophils # 0.1 10*3/uL (0.0-0.2); Basophils % 0.8 % (0.0-0.8); Eosinophils # 0.3 10*3/uL (0.0-0.87); Eosinophils % 3.4 % (0.00-10.9); Hematocrit 27.9 VOL% (35.7-47.0); Hemoglobin 8.5 GM/DL (12.0-16.0); Immature Granulocytes % 0.5 %; Immature Granulocytes Absolute 0.04 #; Lymphocytes % 12.8 % (21.3-54.2); Mean Corpuscular HGB Conc 30.5 GM/DL (32-36); Mean Corpuscular Volume 83.3 FL (87-102); Mean Platelet Volume 11.9 FL (9.6-12.0); Monocytes % 11.4 % (1.7-12.7); NRBC # 0.02 10*3/uL; Neutrophils % 71.1 % (38.7-73.9); Platelet Count 224 T/CUMM (130-400); Red Blood Count 3.35 MC/CUMM (3.8-5.5); Red Cell Distribution Width 20.8 % (9.3-17.3); White Blood Count 7.9 T/CUMM (4-12)
[2019-07-26 06:20] LABS: Calcium 9.2 MG/DL (8.5-10.1); Osmolality,Calculated 300.1 MOS/KG (273-304)
[2019-07-26] MEDS ORDERED: DULAGLUTIDE SUBCUT SCH (09:00)
[2019-07-26] MEDS: METOPROLOL TARTRATE 50 MG TABLET PO SCH ×2 (09:06→21:22)
[2019-07-26] MEDS: GABAPENTIN 300 MG CAPSULE PO SCH ×2 (09:07→21:22)
[2019-07-26] MEDS: ASPIRIN EC 81 MG TABLET PO SCH (09:07)
[2019-07-26] MEDS: POLYETHYLENE GLYCOL POWDER 17 GM PACK PO SCH (09:07)
[2019-07-26] MEDS: PANTOPRAZOLE 40 MG TABLET PO SCH (09:07)
[2019-07-26] MEDS: CLOPIDOGREL 75 MG TABLET PO SCH (09:07)
[2019-07-26] MEDS: FERROUS SULFATE 325 MG TABLET PO SCH ×2 (09:07→21:22)
[2019-07-26] MEDS: POTASSIUM CHLORIDE 20 MEQ TABLET PO SCH (09:07)
[2019-07-26] MEDS: levETIRAcetam 500 MG TABLET PO SCH ×2 (09:14→21:22)
[2019-07-26] MEDS: CITRIC ACID/SODIUM CITRATE 30 ML UDCUP PO SCH ×2 (09:14→21:22)
[2019-07-26] MEDS: cefTRIAXone 1,000 MG in SYRINGE 1 EACH IV SCH (17:01)
[2019-07-26] MEDS: ENOXAPARIN 30 MG/0.3 ML SYRINGE SUBCUT SCH (17:02)
[2019-07-26] MEDS: ATORVASTATIN 40 MG TABLET PO SCH (21:22)
[2019-07-27] MEDS: INSULIN REGULAR 100 UNIT/ML SUBCUT SCH ×4 (00:49→18:47)
[2019-07-27] MEDS: DOBUTamine 500 MG/250 ML PREMIX IV SCH ×2 (02:54→14:57)
[2019-07-27 05:02] LABS: Bilirubin,Direct 0.36 MG/DL (0.0-0.20); Bilirubin,Indirect 0.7 MG/DL (0.0-1.0); Bilirubin,Total 1.1 MG/DL (0.2-1.0); Total Protein 7.5 G/DL (6.4-8.3)
[2019-07-27] MEDS: POLYETHYLENE GLYCOL POWDER 17 GM PACK PO SCH (09:30)
[2019-07-27] MEDS: CITRIC ACID/SODIUM CITRATE 30 ML UDCUP PO SCH ×2 (09:30→23:05)
[2019-07-27] MEDS: GABAPENTIN 300 MG CAPSULE PO SCH ×2 (09:31→23:04)
[2019-07-27] MEDS: CLOPIDOGREL 75 MG TABLET PO SCH (09:31)
[2019-07-27] MEDS: FERROUS SULFATE 325 MG TABLET PO SCH ×2 (09:31→23:04)
[2019-07-27] MEDS: ASPIRIN EC 81 MG TABLET PO SCH (09:31)
[2019-07-27] MEDS: PANTOPRAZOLE 40 MG TABLET PO SCH (09:31)
[2019-07-27] MEDS: TORSEMIDE 20 MG TABLET PO SCH (09:31)
[2019-07-27 09:32] LABS: Basophils % 0.4 % (0.0-0.8); Eosinophils # 0.4 10*3/uL (0.0-0.87); Eosinophils % 4.6 % (0.00-10.9); Hematocrit 28.5 VOL% (35.7-47.0); Hemoglobin 8.8 GM/DL (12.0-16.0); Immature Granulocytes % 0.4 %; Immature Granulocytes Absolute 0.03 #; Lymphocytes # 0.9 10*3/uL (1.4-4.0); Lymphocytes % 10.9 % (21.3-54.2); Mean Corpuscular HGB Conc 30.9 GM/DL (32-36); Mean Corpuscular Volume 82.8 FL (87-102); Monocytes % 9.9 % (1.7-12.7); Neutrophils % 73.8 % (38.7-73.9); Platelet Count 218 T/CUMM (130-400); Red Blood Count 3.44 MC/CUMM (3.8-5.5); Red Cell Distribution Width 21.2 % (9.3-17.3); White Blood Count 7.9 T/CUMM (4-12)
[2019-07-27 09:32] LABS: Calcium 9.4 MG/DL (8.5-10.1); Osmolality,Calculated 297.3 MOS/KG (273-304)
[2019-07-27] MEDS: METOPROLOL TARTRATE 50 MG TABLET PO SCH ×2 (09:32→23:05)
[2019-07-27] MEDS: POTASSIUM CHLORIDE 20 MEQ TABLET PO SCH (09:32)
[2019-07-27] MEDS: levETIRAcetam 500 MG TABLET PO SCH ×2 (10:32→23:04)
[2019-07-27] MEDS: ENOXAPARIN 30 MG/0.3 ML SYRINGE SUBCUT SCH (14:58)
[2019-07-27] MEDS: cefTRIAXone 1,000 MG in SYRINGE 1 EACH IV SCH (14:59)
[2019-07-27] MEDS: ATORVASTATIN 40 MG TABLET PO SCH (23:05)
[2019-07-28] MEDS: INSULIN REGULAR 100 UNIT/ML SUBCUT SCH ×5 (00:06→20:42)
[2019-07-28] MEDS: DOBUTamine 500 MG/250 ML PREMIX IV SCH (04:04)
[2019-07-28 06:21] LABS: Basophils % 0.5 % (0.0-0.8); Eosinophils # 0.5 10*3/uL (0.0-0.87); Eosinophils % 5.9 % (0.00-10.9); Hematocrit 28.5 VOL% (35.7-47.0); Hemoglobin 8.6 GM/DL (12.0-16.0); Immature Granulocytes % 0.5 %; Immature Granulocytes Absolute 0.04 #; Lymphocytes # 1.2 10*3/uL (1.4-4.0); Lymphocytes % 15.4 % (21.3-54.2); Mean Corpuscular HGB Conc 30.2 GM/DL (32-36); Mean Corpuscular Volume 83.3 FL (87-102); Mean Platelet Volume 11.1 FL (9.6-12.0); Monocytes % 11.1 % (1.7-12.7); Neutrophils % 66.6 % (38.7-73.9); Platelet Count 208 T/CUMM (130-400); Red Blood Count 3.42 MC/CUMM (3.8-5.5); Red Cell Distribution Width 21.2 % (9.3-17.3); White Blood Count 7.6 T/CUMM (4-12)
[2019-07-28 06:45] LABS: Calcium 9.1 MG/DL (8.5-10.1); Osmolality,Calculated 289.5 MOS/KG (273-304)
[2019-07-28] MEDS ORDERED: DOBUTamine 500 MG/250 ML PREMIX IV PRN (07:38)
[2019-07-28] MEDS: ASPIRIN EC 81 MG TABLET PO SCH (09:37)
[2019-07-28] MEDS: PANTOPRAZOLE 40 MG TABLET PO SCH (09:37)
[2019-07-28] MEDS: TORSEMIDE 20 MG TABLET PO SCH (09:37)
[2019-07-28] MEDS: levETIRAcetam 500 MG TABLET PO SCH ×2 (09:37→20:42)
[2019-07-28] MEDS: CLOPIDOGREL 75 MG TABLET PO SCH (09:37)
[2019-07-28] MEDS: GABAPENTIN 300 MG CAPSULE PO SCH ×2 (09:38→20:41)
[2019-07-28] MEDS: FERROUS SULFATE 325 MG TABLET PO SCH ×2 (09:38→20:42)
[2019-07-28] MEDS: POTASSIUM CHLORIDE 20 MEQ TABLET PO SCH (09:38)
[2019-07-28] MEDS: METOPROLOL TARTRATE 50 MG TABLET PO SCH ×2 (09:38→20:42)
[2019-07-28] MEDS: CITRIC ACID/SODIUM CITRATE 30 ML UDCUP PO SCH ×2 (09:38→20:42)
[2019-07-28] MEDS: POLYETHYLENE GLYCOL POWDER 17 GM PACK PO SCH (09:39)
[2019-07-28] MEDS: ENOXAPARIN 30 MG/0.3 ML SYRINGE SUBCUT SCH (16:35)
[2019-07-28] MEDS: cefTRIAXone 1,000 MG in SYRINGE 1 EACH IV SCH (16:36)
[2019-07-28] MEDS: ATORVASTATIN 40 MG TABLET PO SCH (20:42)
[2019-07-29] MEDS: ACETAMINOPHEN 325 MG TABLET PO PRN (00:08)
[2019-07-29 04:28] LABS: Basophils # 0.1 10*3/uL (0.0-0.2); Basophils % 0.8 % (0.0-0.8); Eosinophils # 0.4 10*3/uL (0.0-0.87); Eosinophils % 5.7 % (0.00-10.9); Hematocrit 29.3 VOL% (35.7-47.0); Hemoglobin 8.8 GM/DL (12.0-16.0); Immature Granulocytes % 0.3 %; Immature Granulocytes Absolute 0.02 #; Lymphocytes # 1.6 10*3/uL (1.4-4.0); Lymphocytes % 21.1 % (21.3-54.2); Mean Corpuscular Volume 83.5 FL (87-102); Mean Platelet Volume 11.5 FL (9.6-12.0); Monocytes % 9.7 % (1.7-12.7); Neutrophils % 62.4 % (38.7-73.9); Platelet Count 205 T/CUMM (130-400); Red Blood Count 3.51 MC/CUMM (3.8-5.5); Red Cell Distribution Width 21.3 % (9.3-17.3); White Blood Count 7.3 T/CUMM (4-12)
[2019-07-29 04:52] LABS: Calcium 8.9 MG/DL (8.5-10.1); Osmolality,Calculated 287.7 MOS/KG (273-304)
[2019-07-29] MEDS: INSULIN REGULAR 100 UNIT/ML SUBCUT SCH (08:09)
[2019-07-29 08:32] VITALS: BP 132/72
[2019-07-29] MEDS: TORSEMIDE 20 MG TABLET PO SCH (09:46)
[2019-07-29] MEDS: GABAPENTIN 300 MG CAPSULE PO SCH (09:47)
[2019-07-29] MEDS: levETIRAcetam 500 MG TABLET PO SCH (09:47)
[2019-07-29] MEDS: CLOPIDOGREL 75 MG TABLET PO SCH (09:47)
[2019-07-29] MEDS: ASPIRIN EC 81 MG TABLET PO SCH (09:47)
[2019-07-29] MEDS: POTASSIUM CHLORIDE 20 MEQ TABLET PO SCH (09:47)
[2019-07-29] MEDS: PANTOPRAZOLE 40 MG TABLET PO SCH (09:47)
[2019-07-29] MEDS: METOPROLOL TARTRATE 50 MG TABLET PO SCH (09:47)
[2019-07-29] MEDS: CITRIC ACID/SODIUM CITRATE 30 ML UDCUP PO SCH (09:47)
[2019-07-29] MEDS: FERROUS SULFATE 325 MG TABLET PO SCH (09:47)
[2019-07-29] MEDS: POLYETHYLENE GLYCOL POWDER 17 GM PACK PO SCH (09:48)
== END 2019-07-29 10:46 | disposition swing bed (61) | DRG 280 ==
LOC: EDUNIT# → EDBD → N.ED 23:58 → N.EDINP 07-20 01:23 → N.TELES 07-20 02:26
PROVIDERS: ADMIT Internal Medicine Cardiovascular Disease; ATTEND Internal Medicine Cardiovascular Disease

== ENCOUNTER 2019-09-02 17:33 | Inpatient (IN) ==
[2019-09-02] MEDS ORDERED: SODIUM CHLORIDE 0.9% 1,000 ML IV STA (17:52)
[2019-09-02 18:03] LABS: ABG Base Excess -21.8 MMOL/L (-2.5-2.5); ABG Oxygen Saturation 85.1 % (95-100); ABG PCO2 59.4 MM HG (35-48); ABG PO2 84.6 MM HG (80-95); ABG TCO2 12.9 MMOL/L (23-27)
[2019-09-02 18:05] LABS: ABG PH 6.887 (7.35-7.45)
[2019-09-02] MEDS ORDERED: SODIUM BICARBONATE 50 MEQ/50 ML VIAL IV ONE ×2 (18:24→21:42)
[2019-09-02] MEDS ORDERED: NOREPINEPHRINE 4 MG/4 ML VIAL IV ONE ×2 (18:37→18:38)
[2019-09-02] MEDS: NOREPINEPHRINE 8 MG in SODIUM CHLORIDE 0.9% 242 ML IV PRN (18:53)
[2019-09-02] MEDS ORDERED: SODIUM BICARB INJ 100 MEQ in DEXTROSE 5% 1,000 ML IV SCH (19:00)
[2019-09-02] MEDS ORDERED: SODIUM BICARBONATE 50 MEQ/50 ML VIAL IV STA (19:43)
[2019-09-02 19:56] LABS: INR 2.3
[2019-09-02 20:00] LABS: PT Patient Result 25.3 SECS (9.6-12.2)
[2019-09-02 20:05] LABS: Albumin 2.5 G/DL (3.4-5.0); Bilirubin,Total 1.5 MG/DL (0.2-1.0); Calcium 8.1 MG/DL (8.5-10.1); Osmolality,Calculated 292.8 MOS/KG (273-304); Total Protein 7.1 G/DL (6.4-8.3)
[2019-09-02 20:06] LABS: Troponin I 15.2 NG/ML (0.00-0.045)
[2019-09-02 20:10] LABS: Basophils # 0.1 10*3/uL (0.0-0.2); Basophils % 0.5 % (0.0-0.8); Eosinophils # 0.2 10*3/uL (0.0-0.87); Eosinophils % 1.2 % (0.00-10.9); Hematocrit 36.4 VOL% (35.7-47.0); Immature Granulocytes % 3.8 %; Immature Granulocytes Absolute 0.59 #; Lymphocytes # 2.4 10*3/uL (1.4-4.0); Lymphocytes % 15.7 % (21.3-54.2); Mean Corpuscular HGB Conc 27.7 GM/DL (32-36); Mean Corpuscular Volume 90.5 FL (87-102); Mean Platelet Volume 11.4 FL (9.6-12.0); Monocytes % 3.7 % (1.7-12.7); NRBC # 0.44 10*3/uL; Neutrophils % 75.1 % (38.7-73.9); Platelet Count 206 T/CUMM (130-400); Red Blood Count 4.02 MC/CUMM (3.8-5.5); Red Cell Distribution Width 20.2 % (9.3-17.3); White Blood Count 15.5 T/CUMM (4-12)
[2019-09-02 20:18] LABS: Hemoglobin 10.1 GM/DL (12.0-16.0)
[2019-09-02 20:23] LABS: Anisocytosis 1+; Band Neutrophils 2 % (0-10); Burr Cells Few; Lymphocytes 13 % (20-55); Macrocytosis 1+; Metamyelocytes 4 %; Microcytosis Slight; Nucleated Red Blood Cells 1 (0-5); Platelet Estimate Normal; Poikilocytosis Few; Polychromasia Slight; Segmented Neutrophils 75 % (50-85); Total Cells Counted 100
[2019-09-02] MEDS ORDERED: PIPERACILLIN/TAZOBACTAM 3,375 MG in SODIUM CHLORIDE 0.9% 100 ML IV STA (20:37)
[2019-09-02] MEDS ORDERED: VANCOMYCIN INJ 1,500 MG in SODIUM CHLORIDE 0.9% 500 ML IV STA (20:37)
[2019-09-02] MEDS ORDERED: ONDANSETRON 4 MG/2 ML VIAL IV PRN (21:52)
[2019-09-02] MEDS ORDERED: ACETAMINOPHEN 325 MG TABLET PO PRN (21:52)
[2019-09-02 22:14] LABS: ABG Base Excess -13.9 MMOL/L (-2.5-2.5); ABG HCO3 13.8 MMOL/L (20-26); ABG Oxygen Saturation 96.7 % (95-100); ABG PCO2 41.1 MM HG (35-48); ABG TCO2 13.6 MMOL/L (23-27)
[2019-09-02] MEDS ORDERED: DOPamine 800 MG/250 ML PREMIX IV ONE (22:27)
[2019-09-02 22:29] LABS: ABG PH 7.155 (7.35-7.45)
[2019-09-02] MEDS: DOPamine 800 MG/250 ML PREMIX IV PRN (22:34)
[2019-09-02 22:55] LABS: ABG Base Excess -8.4 MMOL/L (-2.5-2.5); ABG HCO3 18.1 MMOL/L (20-26); ABG Oxygen Saturation 99.2 % (95-100); ABG PCO2 40.6 MM HG (35-48); ABG PH 7.266 (7.35-7.45); ABG PO2 216.2 MM HG (80-95); ABG TCO2 19.3 MMOL/L (23-27)
[2019-09-03] MEDS ORDERED: FUROSEMIDE 40 MG/4 ML VIAL IV ONE ×2 (01:23→11:42)
[2019-09-03] MEDS ORDERED: SODIUM CHLORIDE 0.9% 1,000 ML IV ONE (01:23)
[2019-09-03] MEDS ORDERED: ENOXAPARIN 150 MG/ML SYRINGE SUBCUT ONE (01:34)
[2019-09-03] MEDS: NOREPINEPHRINE 8 MG in SODIUM CHLORIDE 0.9% 242 ML IV PRN (01:50)
[2019-09-03] MEDS ORDERED: SODIUM CHLORIDE 0.9% 1,000 ML IV SCH (02:00)
[2019-09-03] MEDS: MEROPENEM 500 MG in SODIUM CHLORIDE 0.9% 100 ML IV SCH ×3 (02:32→18:43)
[2019-09-03] MEDS: AZITHROMYCIN INJ 500 MG in SODIUM CHLORIDE 0.9% 250 ML IV SCH (02:33)
[2019-09-03 03:15] LABS: ABG Base Excess -14.9 MMOL/L (-2.5-2.5); ABG HCO3 13.2 MMOL/L (20-26); ABG PCO2 39.5 MM HG (35-48); ABG PO2 89.2 MM HG (80-95); ABG TCO2 14.4 MMOL/L (23-27); Allen Test Negative; Pt O2 Delivery Device Ventilator
[2019-09-03 03:16] LABS: ABG PH 7.143 (7.35-7.45)
[2019-09-03] MEDS ORDERED: SODIUM BICARBONATE 50 MEQ/50 ML VIAL IV ONE ×7 (03:19→18:52)
[2019-09-03] MEDS: SODIUM BICARB INJ 150 MEQ in DEXTROSE 5% 1,000 ML IV SCH ×2 (03:53→15:09)
[2019-09-03 04:02] LABS: Albumin 2.3 G/DL (3.4-5.0); Bilirubin,Total 1.7 MG/DL (0.2-1.0); Calcium 7.5 MG/DL (8.5-10.1); Osmolality,Calculated 302.3 MOS/KG (273-304); Total Protein 6.2 G/DL (6.4-8.3)
[2019-09-03 04:17] LABS: Basophils # 0.1 10*3/uL (0.0-0.2); Basophils % 0.2 % (0.0-0.8); Hematocrit 34.1 VOL% (35.7-47.0); Immature Granulocytes % 1.2 %; Immature Granulocytes Absolute 0.36 #; Lymphocytes # 0.8 10*3/uL (1.4-4.0); Lymphocytes % 2.7 % (21.3-54.2); Mean Corpuscular HGB Conc 28.7 GM/DL (32-36); Mean Platelet Volume 10.7 FL (9.6-12.0); Monocytes % 5.8 % (1.7-12.7); NRBC # 0.45 10*3/uL; Neutrophils % 90.1 % (38.7-73.9); Platelet Count 177 T/CUMM (130-400); Red Blood Count 3.83 MC/CUMM (3.8-5.5); Red Cell Distribution Width 20.1 % (9.3-17.3); White Blood Count 29.3 T/CUMM (4-12)
[2019-09-03 04:18] LABS: Hemoglobin 9.8 GM/DL (12.0-16.0)
[2019-09-03 04:22] LABS: INR 2.3; Partial Thromboplastin Time 36.9 SECS (20.8-36.0)
[2019-09-03] MEDS ORDERED: SODIUM CHLORIDE 0.9% 1,500 ML IV ONE (04:22)
[2019-09-03 04:32] LABS: PT Patient Result 24.6 SECS (9.6-12.2)
[2019-09-03 04:42] LABS: Lymphocytes 1 % (20-55); Nucleated Red Blood Cells 1 (0-5); Segmented Neutrophils 96 % (50-85); Total Cells Counted 100
[2019-09-03] MEDS: DOBUTamine 500 MG/250 ML PREMIX IV PRN ×5 (04:42→23:56)
[2019-09-03 04:43] LABS: Platelet Estimate Decreased; Polychromasia Few
[2019-09-03] MEDS ORDERED: SODIUM CHLORIDE 0.9% 1,000 ML IV PRN (05:28)
[2019-09-03 05:35] LABS: Allen Test Positive; Pt O2 Delivery Device Ventilator
[2019-09-03 05:36] LABS: ABG Base Excess -15.3 MMOL/L (-2.5-2.5); ABG HCO3 12.9 MMOL/L (20-26); ABG Oxygen Saturation 99.6 % (95-100); ABG PCO2 39.2 MM HG (35-48); ABG PO2 347.1 MM HG (80-95); ABG TCO2 14.1 MMOL/L (23-27)
[2019-09-03 05:37] LABS: ABG PH 7.135 (7.35-7.45)
[2019-09-03] MEDS: NOREPINEPHRINE 16 MG in SODIUM CHLORIDE 0.9% 234 ML IV PRN ×3 (06:27→19:59)
[2019-09-03] MEDS ORDERED: PIPERACILLIN/TAZOBACTAM 3,375 MG in SODIUM CHLORIDE 0.9% 100 ML IV SCH (09:00)
[2019-09-03 12:26] LABS: ABG Base Excess -14.1 MMOL/L (-2.5-2.5); ABG HCO3 14.4 MMOL/L (20-26); ABG Oxygen Saturation 98.3 % (95-100); ABG PCO2 44.6 MM HG (35-48); ABG PO2 151.8 MM HG (80-95); ABG TCO2 15.8 MMOL/L (23-27)
[2019-09-03 12:28] LABS: ABG PH 7.127 (7.35-7.45)
[2019-09-03 12:37] LABS: Basophils # 0.1 10*3/uL (0.0-0.2); Basophils % 0.2 % (0.0-0.8); Hematocrit 33.3 VOL% (35.7-47.0); Hemoglobin 9.4 GM/DL (12.0-16.0); Immature Granulocytes % 1.1 %; Immature Granulocytes Absolute 0.31 #; Lymphocytes % 3.4 % (21.3-54.2); Mean Corpuscular HGB Conc 28.2 GM/DL (32-36); Mean Corpuscular Volume 89.8 FL (87-102); Mean Platelet Volume 10.7 FL (9.6-12.0); Monocytes % 6.5 % (1.7-12.7); NRBC # 0.15 10*3/uL; Neutrophils % 88.8 % (38.7-73.9); Platelet Count 140 T/CUMM (130-400); Red Blood Count 3.71 MC/CUMM (3.8-5.5); Red Cell Distribution Width 20.2 % (9.3-17.3); White Blood Count 28.4 T/CUMM (4-12)
[2019-09-03] MEDS ORDERED: CALCIUM GLUCONATE 2,000 MG in SODIUM CHLORIDE 0.9% 100 ML IV ONE (13:14)
[2019-09-03] MEDS ORDERED: DEXTROSE 10% 250 ML BAG IV ONE (13:14)
[2019-09-03] MEDS ORDERED: INSULIN REGULAR 100 UNIT/ML IV ONE (13:15)
[2019-09-03] MEDS ORDERED: PANTOPRAZOLE INJ 80 MG in SODIUM CHLORIDE 0.9% 100 ML IV ONE (14:00)
[2019-09-03 14:05] LABS: ABG Base Excess -11.4 MMOL/L (-2.5-2.5); ABG HCO3 15.4 MMOL/L (20-26); ABG Oxygen Saturation 98.5 % (95-100); ABG PCO2 45.1 MM HG (35-48); ABG TCO2 15.8 MMOL/L (23-27)
[2019-09-03 14:08] LABS: ABG PH 7.176 (7.35-7.45)
[2019-09-03 14:24] LABS: Albumin 2.4 G/DL (3.4-5.0); Bilirubin,Total 1.6 MG/DL (0.2-1.0); Calcium 7.5 MG/DL (8.5-10.1); Osmolality,Calculated 307.4 MOS/KG (273-304); Total Protein 6.4 G/DL (6.4-8.3)
[2019-09-03 14:40] LABS: Band Neutrophils 1 % (0-10); Lymphocytes 6 % (20-55); Segmented Neutrophils 90 % (50-85); Total Cells Counted 100
[2019-09-03 14:41] LABS: Acanthocytes 1+; Anisocytosis 1+; Atypical Lymphocytes 2+; Elliptocytes 1+; Platelet Estimate Adequate; Target Cells Slight
[2019-09-03] MEDS: ALBUTEROL/IPRATROPIUM 3 ML NEB RESP TX SCH ×3 (15:02→23:10)
[2019-09-03] MEDS: SODIUM POLYSTYRENE SULFATE 15 GM/60 ML BOTTLE PO SCH (15:43)
[2019-09-03] MEDS: DOPamine 800 MG/250 ML PREMIX IV PRN (16:34)
[2019-09-03 17:05] LABS: ABG Base Excess -11.8 MMOL/L (-2.5-2.5); ABG HCO3 15.1 MMOL/L (20-26); ABG Oxygen Saturation 94.7 % (95-100); ABG PCO2 45.8 MM HG (35-48); ABG PO2 92.9 MM HG (80-95); ABG TCO2 15.8 MMOL/L (23-27)
[2019-09-03 17:07] LABS: ABG PH 7.164 (7.35-7.45)
[2019-09-03 18:47] LABS: Basophils % 0.1 % (0.0-0.8); Hematocrit 29.7 VOL% (35.7-47.0); Hemoglobin 8.3 GM/DL (12.0-16.0); Immature Granulocytes % 0.6 %; Immature Granulocytes Absolute 0.14 #; Lymphocytes % 4.7 % (21.3-54.2); Mean Corpuscular HGB Conc 27.9 GM/DL (32-36); Mean Corpuscular Volume 89.7 FL (87-102); Mean Platelet Volume 11.3 FL (9.6-12.0); Monocytes % 7.5 % (1.7-12.7); NRBC # 0.12 10*3/uL; Neutrophils % 87.1 % (38.7-73.9); Platelet Count 127 T/CUMM (130-400); Red Blood Count 3.31 MC/CUMM (3.8-5.5); White Blood Count 21.9 T/CUMM (4-12)
[2019-09-03 18:52] LABS: ABG Base Excess -8.7 MMOL/L (-2.5-2.5); ABG HCO3 17.3 MMOL/L (20-26); ABG Oxygen Saturation 98.4 % (95-100); ABG PCO2 40.3 MM HG (35-48); ABG PH 7.255 (7.35-7.45); ABG TCO2 16.9 MMOL/L (23-27)
[2019-09-03 19:18] LABS: Acanthocytes 1+; Anisocytosis 1+; Lymphocytes 5 % (20-55); Poikilocytosis 1+; Segmented Neutrophils 92 % (50-85); Total Cells Counted 100
[2019-09-03 19:19] LABS: Platelet Estimate Adequate
[2019-09-04] MEDS: SODIUM BICARB INJ 150 MEQ in DEXTROSE 5% 1,000 ML IV SCH ×2 (01:00→11:53)
[2019-09-04 01:35] LABS: Basophils % 0.1 % (0.0-0.8); Hematocrit 25.7 VOL% (35.7-47.0); Hemoglobin 7.3 GM/DL (12.0-16.0); Immature Granulocytes % 0.9 %; Immature Granulocytes Absolute 0.15 #; Lymphocytes # 0.7 10*3/uL (1.4-4.0); Lymphocytes % 4.3 % (21.3-54.2); Mean Corpuscular HGB Conc 28.4 GM/DL (32-36); Mean Corpuscular Volume 89.5 FL (87-102); Mean Platelet Volume 12.7 FL (9.6-12.0); Monocytes % 6.9 % (1.7-12.7); NRBC # 0.13 10*3/uL; Neutrophils % 87.8 % (38.7-73.9); Platelet Count 106 T/CUMM (130-400); Red Blood Count 2.87 MC/CUMM (3.8-5.5); Red Cell Distribution Width 19.9 % (9.3-17.3); White Blood Count 17.2 T/CUMM (4-12)
[2019-09-04] MEDS: DOBUTamine 500 MG/250 ML PREMIX IV PRN ×7 (01:37→10:37)
[2019-09-04] MEDS ORDERED: NOREPINEPHRINE 4 MG/4 ML VIAL IV ONE (02:02)
[2019-09-04] MEDS: AZITHROMYCIN INJ 500 MG in SODIUM CHLORIDE 0.9% 250 ML IV SCH (02:25)
[2019-09-04] MEDS: MEROPENEM 500 MG in SODIUM CHLORIDE 0.9% 100 ML IV SCH ×2 (02:25→11:53)
[2019-09-04 02:26] LABS: Band Neutrophils 3 % (0-10); Lymphocytes 5 % (20-55); Nucleated Red Blood Cells 1 (0-5); Segmented Neutrophils 85 % (50-85)
[2019-09-04 02:28] LABS: Acanthocytes 1+; Hypochromasia 1+
[2019-09-04 02:29] LABS: Polychromasia Few; Schistocytes Few
[2019-09-04 02:30] LABS: Poikilocytosis 1+; Target Cells Few
[2019-09-04 02:31] LABS: Platelet Estimate Adequate
[2019-09-04 02:32] LABS: Total Cells Counted 100
[2019-09-04 03:05] LABS: ABG Base Excess -5.4 MMOL/L (-2.5-2.5); ABG HCO3 19.8 MMOL/L (20-26); ABG Oxygen Saturation 88.3 % (95-100); ABG PCO2 46.4 MM HG (35-48); ABG PO2 67.5 MM HG (80-95); ABG TCO2 20.3 MMOL/L (23-27)
[2019-09-04 03:15] LABS: Basophils % 0.1 % (0.0-0.8); Hematocrit 24.2 VOL% (35.7-47.0); Hemoglobin 7.1 GM/DL (12.0-16.0); Immature Granulocytes % 0.6 %; Lymphocytes # 0.8 10*3/uL (1.4-4.0); Lymphocytes % 4.9 % (21.3-54.2); Mean Corpuscular HGB Conc 29.3 GM/DL (32-36); Mean Corpuscular Volume 87.1 FL (87-102); Mean Platelet Volume 11.7 FL (9.6-12.0); Monocytes % 7.9 % (1.7-12.7); NRBC # 0.12 10*3/uL; Neutrophils % 86.5 % (38.7-73.9); Red Blood Count 2.78 MC/CUMM (3.8-5.5); Red Cell Distribution Width 19.8 % (9.3-17.3); White Blood Count 16.4 T/CUMM (4-12)
[2019-09-04 03:19] LABS: Platelet Count 96 T/CUMM (130-400)
[2019-09-04] MEDS: ALBUTEROL/IPRATROPIUM 3 ML NEB RESP TX SCH ×2 (03:20→08:14)
[2019-09-04 03:24] LABS: Albumin 2.2 G/DL (3.4-5.0); Bilirubin,Total 1.3 MG/DL (0.2-1.0); Calcium 7.3 MG/DL (8.5-10.1); Total Protein 5.6 G/DL (6.4-8.3)
[2019-09-04] MEDS: NOREPINEPHRINE 16 MG in SODIUM CHLORIDE 0.9% 234 ML IV PRN ×2 (03:30→11:05)
[2019-09-04] MEDS: SODIUM POLYSTYRENE SULFATE 15 GM/60 ML BOTTLE PO SCH (03:48)
[2019-09-04 04:12] LABS: Band Neutrophils 1 % (0-10); Lymphocytes 7 % (20-55); Segmented Neutrophils 86 % (50-85)
[2019-09-04 04:14] LABS: Hypochromasia 1+; Ovalocytes 1+; Platelet Estimate Decreased; Polychromasia Few
[2019-09-04 04:16] LABS: Acanthocytes Few; Total Cells Counted 100
[2019-09-04] MEDS: DOPamine 800 MG/250 ML PREMIX IV PRN (05:30)
[2019-09-04] MEDS ORDERED: VANCOMYCIN INJ 2,000 MG in SODIUM CHLORIDE 0.9% 500 ML IV SCH (09:00)
[2019-09-04 10:46] VITALS: BP 73/45
== END 2019-09-04 11:30 | disposition expired | DRG 296 ==
LOC: EDBD → EDUNIT# → N.ED 17:33 → N.EDINP 21:52 → N.ICU 22:10
PROVIDERS: ADMIT Internal Medicine Geriatric Medicine; ATTEND Internal Medicine Geriatric Medicine